=== PATIENT | female | born 1935 | race Caucasian/White ===

== ENCOUNTER 2016-10-11 11:57 | Emergency (ER) | payer MEDICARE, BC ==
[2016-10-11] MEDS ORDERED: Sodium Chloride 0.9% 1,000 ML IV ONE ×2 (12:30→12:32)
[2016-10-11] MEDS ORDERED: Ketorolac 15 MG/ML SDV IVPUSH ONE (12:30)
--- NOTE | 2016-10-11 12:30 | EDM.PDOC ---
ED HPI GENERAL MEDICAL PROBLEM - General Chief Complaint: Neck Problem Stated Complaint: RIGHT ARM PAIN Time Seen by Provider: 10/11/16 11:59 Source of Information: Reports: Patient History Limitations: Reports: No Limitations - History of Present Illness INITIAL COMMENTS - FREE TEXT/NARRATIVE: HISTORY AND PHYSICAL: History of present illness: [80-year-old female with no history of chronic abdominal problems now complaining of right flank and right upper quadrant pain intermittently times weeks. Patient is not vomiting or having diarrhea. She denies fevers chills sweats or shaking chills. She is having the pain again today. Patient is not sure if she had her gallbladder out previously. She does have some discomfort with movement. She states she did fall in recent weeks and is not sure if she hurt her right ribs. No chest pain or shortness of breath. She reports normal bowel and bladder habits Review of systems: As per history of present illness and below otherwise all systems reviewed and negative. Past medical history: As per history of present illness and as reviewed below otherwise noncontributory. Surgical history: As per history of present illness and as reviewed below otherwise noncontributory. Social history: No reported history of drug or alcohol abuse. Family history: As per history of present illness and as reviewed below otherwise noncontributory. Physical exam: Perfectly groomed elderly female no acute distress alert and communicative. Mild right CVA tenderness as well as right upper quadrant tenderness. Mild tenderness right ribs and right lateral costal margin but no ecchymosis or bony crepitus. Patient has normal bowel sounds with no mass or megaly. Nondistended abdomen. HEENT: Atraumatic, normocephalic, pupils reactive, negative for conjunctival pallor or scleral icterus, mucous membranes moist, throat clear, neck supple, nontender, trachea midline. Lungs: Clear to auscultation, breath sounds equal bilaterally, chest nontender. Heart: S1S2, regular, negative for clicks, rubs, or JVD. Abdomen: Soft, nondistended, mild tenderness right upper quadrant. Negative for masses or hepatosplenomegaly. Mild right CVA tenderness Negative for left costovertebral tenderness. Pelvis: Stable nontender. Genitourinary: Deferred. Rectal: Deferred. Extremities: Atraumatic, negative for cords or calf pain. Neurovascular unremarkable. Neuro: Awake, alert, oriented. Cranial nerves II through XII unremarkable. Cerebellum unremarkable. Motor and sensory unremarkable throughout. Exam nonfocal. Diagnostics: CT abdomen and pelvis as well as full labs pending Therapeutics: [Toradol IV fluids administered] Impression: [Abdominal pain] Right rib fractures Hiatal hernia Right pleural effusion Plan: [Elderly female ambulatory and functional perfectly groomed and well-appearing complaining of chronic intermittent right upper quadrant and right flank pain. She also has some right-sided rib tenderness. X-ray right ribs and full abdominal workup pending] X-ray shows 2 right rib fractures fifth and sixth rib. These have started to heal. No pneumothorax. Chest x-ray otherwise unremarkable. Interpreted by me report reviewed CT of the abdomen and pelvis shows small effusion right lung base. Also incidental finding of hiatal hernia. Results otherwise benign. Full laboratory workup is unremarkable including straight catheter urinalysis. No further workup or treatment indicated at this time. Daughter is present with patient and both daughter and patient agree with outpatient follow-up. Strict return precautions given Definitive disposition and diagnosis as appropriate pending reevaluation and review of above. right rib Pain Score (Numeric/FACES): 7 - Related Data Allergies Allergy/AdvReac Type Severity Reaction Status Date / Time contact metal agent Allergy Rash Verified 10/11/16 12:18 latex Allergy Rash Verified 10/11/16 12:18 levofloxacin Allergy Tremors Verified 10/11/16 12:18 Home Meds: Home Meds Acetaminophen [Tylenol Arthritis Pain] 650 mg PO Q4HR PRN 10/11/16 [History] Alum Hydroxide/Mag Hydroxide [Mag-Al Susp] 30 ml PO Q6H PRN 10/11/16 [History] Bisacodyl [Dulcolax] 10 mg RECTAL DAILY PRN 10/11/16 [History] Calcium Carbonate/Vitamin D3 [Calcium 600 + Vit D Tablet] 1 each PO DAILY [History] Diclofenac Sodium 4 gm TP Q6H PRN 10/11/16 [History] Magnesium Hydroxide [Milk of Magnesia] 30 ml PO DAILY PRN 10/11/16 [History] Multivitamin [Daily Kaye] 1 each PO DAILY 10/11/16 [History] Omeprazole 20 mg PO ACBREAKFAST 10/11/16 [History] Sertraline [Zoloft] 100 mg PO DAILY 10/11/16 [History] predniSONE [Prednisone] 5 mg PO DAILY 10/11/16 [History] traMADol [Ultram] 50 mg PO Q4H PRN 10/11/16 [History] Past Medical History HEENT History: Reports: None Cardiovascular History: Reports: None Respiratory History: Reports: None Gastrointestinal History: Reports: Other (See Below) Other Gastrointestinal History: esophageal reflux Genitourinary History: Reports: None 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 Musculoskeletal History: Reports: Arthritis Neurological History: Reports: Other (See Below) Other Neuro History: congenitive deficits, mild Psychiatric History: Reports: Anxiety, Depression Endocrine/Metabolic History: Reports: None Hematologic History: Reports: None Immunologic History: Reports: None Dermatologic History: Reports: None - Infectious Disease History Infectious Disease History: Reports: None - Past Surgical History Head Surgeries/Procedures: Reports: None Social & Family History - Family History Family Medical History: Noncontributory - Tobacco Use Smoking Status *Q: Never Smoker Second Hand Smoke Exposure: No - Caffeine Use Caffeine Use: Reports: None - Alcohol Use Days Per Week of Alcohol Use: 0 - Recreational Drug Use Recreational Drug Use: No ED ROS GENERAL - Review of Systems Review Of Systems: See Below (History of present illness) ED EXAM, GENERAL - Physical Exam Exam: See Below (History of present illness) Course - Vital Signs Last Recorded V/S: Last Vital Signs Temp 36.1 C 10/11/16 12:19 Pulse 70 10/11/16 12:19 Resp 18 10/11/16 12:19 BP 173/87 H 10/11/16 12:19 Pulse Ox 98 10/11/16 12:19 - Orders/Labs/Meds Orders: Active Orders 24 hr Category Date Time Status Abdomen Pelvis w wo Cont [CT] Stat Exams 10/11/16 12:31 Taken Ribs 2V w Chest Rt [CR] Stat Exams 10/11/16 12:40 Taken Peripheral IV Insertion Adult [OM.PC] Stat Oth 10/11/16 12:30 Ordered Labs: Laboratory Tests 10/11/16 10/11/16 10/11/16 Range/Units 12:50 12:50 15:12 WBC 11.03 H (4.0-11.0) K/uL RBC 4.51 (4.30-5.90) M/uL Hgb 13.0 (12.0-16.0) g/dL Hct 39.7 (36.0-46.0) % MCV 88.0 (80.0-98.0) fL MCH 28.8 (27.0-32.0) pg MCHC 32.7 (31.0-37.0) g/dL RDW Std Deviation 44.3 (28.0-62.0) fl RDW Coeff of [place] 14 (11.0-15.0) % Plt Count 220 (150-400) K/uL MPV 9.50 (7.40-12.00) fL Neut % (Auto) 77.3 (48.0-80.0) % Lymph % (Auto) 15.1 L (16.0-40.0) % [place] % (Auto) 6.9 (0.0-15.0) % Eos % (Auto) 0.4 (0.0-7.0) % Baso % (Auto) 0.3 (0.0-1.5) % Neut # (Auto) 8.5 H (1.4-5.7) K/uL Lymph # (Auto) 1.7 (0.6-2.4) K/uL [place] # (Auto) 0.8 (0.0-0.8) K/uL Eos # (Auto) 0.0 (0.0-0.7) K/uL Baso # (Auto) 0.0 (0.0-0.1) K/uL Nucleated RBC % 0.0 /100WBC Nucleated RBCs # 0 K/uL Sodium 141 (136-146) mmol/L Potassium 4.0 (3.5-5.1) mmol/L Chloride 103 (98-110) mmol/L Carbon Dioxide 27 (21-31) mmol/L BUN 12 (6.0-23.0) mg/dL Creatinine 0.8 (0.6-1.5) mg/dL Est Cr Clr Drug Dosing 52.15 mL/min Estimated GFR (MDRD) > 60.0 ml/min Glucose 128 H (60-110) mg/dL Calcium 9.6 (8.8-10.8) mg/dL Total Bilirubin 0.6 (0.1-1.5) mg/dL AST 17 (5-40) IU/L ALT 20 (8-54) IU/L Alkaline Phosphatase 79 (40-150) Total Protein 7.3 (6.0-8.0) g/dL Albumin 4.3 (3.4-4.8) g/dL Globulin 3.0 (2.0-3.5) g/dL Albumin/Globulin Ratio 1.4 (1.3-2.8) Lipase < 8 (7-80) U/L Urine Color YELLOW Urine Appearance CLEAR Urine pH 6.0 (5.0-8.0) Ur Specific [place] 1.010 (1.001-1.035) Urine Protein NEGATIVE (NEGATIVE) mg/dL Urine Glucose (UA) NEGATIVE (NEGATIVE) mg/dL Urine Ketones NEGATIVE (NEGATIVE) mg/dL Urine Occult Blood NEGATIVE (NEGATIVE) Urine Nitrite NEGATIVE (NEGATIVE) Urine Bilirubin NEGATIVE (NEGATIVE) Urine Urobilinogen 0.2 (<2.0) EU/dL Ur Leukocyte Esterase NEGATIVE (NEGATIVE) Urine RBC 0-3 (0-2/HPF) Urine WBC 0-2 (0-5/HPF) Ur Epithelial Cells FEW (NONE-FEW) Urine Bacteria FEW (NEGATIVE) Urine Mucus MODERATE (NONE-MOD) Meds: Medications Discontinued Medications Generic Name Dose Route Start Last Admin Trade Name Freq PRN Reason Stop Dose Admin Sodium Chloride 1,000 mls @ 999 mls/hr 10/11/16 12:30 10/11/16 12:55 Normal Saline IV 10/11/16 13:30 999 mls/hr .Bolus ONE Administration Sodium Chloride 1,000 mls @ 999 mls/hr 10/11/16 12:32 Normal Saline IV 10/11/16 13:32 STAT ONE Iopamidol 100 ml 10/11/16 14:43 10/11/16 14:44 Isovue Multipack-370 (76%) IVPUSH 10/11/16 14:44 100 ml ONETIME STA Administration Ketorolac Tromethamine 15 mg 10/11/16 12:30 10/11/16 12:55 Toradol IVPUSH 10/11/16 12:31 15 mg ONETIME ONE Administration Departure - Departure Time of Disposition: 16:31 Disposition: Home, Self-Care 01 Condition: Good Clinical Impression: Ribs, multiple fractures, Pleural effusion on right, Hiatal hernia - Discharge Information Referrals: Rubens Weeks MD [Primary Care Provider] - Forms: ED Department Discharge Additional Instructions: You have 2 rib fractures on the right your fifth and sixth rib. Use of started to heal since it has been about 2 weeks and she reinjured herself. Is common for them to be sore until they're completely healed. Take Motrin with Tylenol as well if needed for pain. You have a small amount of fluid on the right lung which is called a pleural effusion and follow-up with your Dr. for reevaluation and determine if further workup or treatment is needed. You also have a hiatal hernia which means part of your stomach protrudes up 3 your diaphragm and can sometimes cause some heartburn. Follow up with your DrKat tomorrow and return immediately for new severe or worsening symptoms - My Orders Last 24 Hours: My Active Orders 10/11/16 12:30 Peripheral IV Insertion Adult [OM.PC] Stat 10/11/16 12:31 Abdomen Pelvis w wo Cont [CT] Stat 10/11/16 12:40 Ribs 2V w Chest Rt [CR] Stat - Assessment/Plan Last 24 Hours: My Active Orders 10/11/16 12:30 Peripheral IV Insertion Adult [OM.PC] Stat 10/11/16 12:31 Abdomen Pelvis w wo Cont [CT] Stat 10/11/16 12:40 Ribs 2V w Chest Rt [CR] Stat
[2016-10-11 13:27] LABS: CHLORIDE,CL 103 mmol/L (98-110); SODIUM,NA 141 mmol/L (136-146)
[2016-10-11] MEDS ORDERED: Iopamidol 755 MG/ML 500 ML Multipack Bottle IVPUSH STA (14:43)
--- NOTE | 2016-10-12 13:48 | CR ---
EXAM DATE: 10/11/16 PATIENT'S AGE: 80 Patient: LETY SANCHEZ Facility: [place], [place] Site . Site : 1935 Study: XRay Extremity Right ribs/chest [id number] 2:21:57 PM Ordering Physician: Osvaldo Kendall Final Report: INDICATION: Right chest pain. Recent injury Technique: PA chest and 3 views of right ribs Findings: The heart and mediastinum are normal in size. Pulmonary vessels are normal. The lungs are clear and fully expanded. No pleural fluid. Mild elevation the right hemidiaphragm is not new. No acute right rib fractures. healed fractures of the posterior 5th and 6th ribs. Impression: No acute chest disease or right rib fractures. Old healed fractures of the right 5th and 6th ribs. Dictated by Elier Hoffman MD @ Oct 11 2016 3:10PM (Electronic Signature) Report Signed by Proxy. RICHI
--- NOTE | 2016-10-12 13:49 | CT ---
EXAM DATE: 10/11/16 PATIENT'S AGE: 80 Patient: LETY SANCHEZ Facility: [place], [place] Site . Site : 1935 Study: CT Abdomen/Pelvis W/ and W/O Cont [id number]/[id number]/2017 2:43:43 PM Ordering Physician: Osvaldo Kendall Final Report: INDICATION: Abdominal pain. Technique: Volumetric CT acquisition of the abdomen and pelvis before after administration of 100 mL Isovue-370 intravenous contrast. Multiplanar reconstruction. Comparison: CT abdomen and pelvis on 01/05/2013. Findings: Atelectasis and a small effusion at the right lung base. Liver and spleen are normal in size and without focal abnormality. Liver displays changes of diffuse fatty infiltration. Surgical absence of the gallbladder. No dilatation of the biliary system. Pancreas and adrenal glands are normal. Kidneys normal in size, shape, and position. Both kidneys are functioning. No hydronephrosis. No renal masses or focal parenchymal abnormalities. Ureters normal in course and caliber. The abdominal aorta normal in caliber and displays changes of atherosclerosis. No para-aortic or retrocrural lymphadenopathy. Normal bowel gas pattern. Stable small hiatal hernia. No inflammatory changes involving the bowel. Urinary bladder has a smooth contour. No free fluid in the abdomen or pelvis. No acute bony abnormalities. Lumbar spondylosis. Impression : 1. Atelectasis and a small effusion at the right lung base. 2. Diffuse fatty infiltration of the liver. 3. Gallbladder surgically absent. 4. Stable small hiatal hernia. Please note that all CT scans at this facility use dose modulation, iterative reconstruction, and/or weight-based dosing when appropriate to reduce radiation dose to as low as reasonably achievable. Dictated by Elier Hoffman MD @ Oct 11 2016 3:39PM (Electronic Signature) Report Signed by Proxy. [facility]
[2016-10-12 15:06] VITALS: BP 150/77
== END 2016-10-11 16:56 | disposition home or self-care (01) ==
LOC: MW.ED 11:57
DX: S22.41XA Multiple fractures of ribs, right side, initial encounter for closed fracture (principal); J90 Pleural effusion, not elsewhere classified; K44.9 Diaphragmatic hernia without obstruction or gangrene; W19.XXXA Unspecified fall, initial encounter
CPT/HCPCS: 71101; 74178; 80053; 81001; 83690; 85025; 96361; 96374; 99284; J1885; J7040; Q9967; 99283

== ENCOUNTER 2019-06-26 15:34 | Emergency (ER) | payer MEDICARE, BC ==
[2019-06-26] MEDS ORDERED: fentaNYL 50 MCG/ML SDV IVPUSH ONE (16:05)
--- NOTE | 2019-06-26 16:48 | EDM.PDOC ---
ED HPI GENERAL MEDICAL PROBLEM - General Chief Complaint: Lower Extremity Injury/Pain Stated Complaint: left ankle swollen Time Seen by Provider: 06/26/19 16:45 Source of Information: Reports: Patient, Shelter Records, Old Records History Limitations: Reports: No Limitations, Other - History of Present Illness INITIAL COMMENTS - FREE TEXT/NARRATIVE: Patient is [id number] female with past medical history of dementia presenting status post fall. [facility] Patient does not remember what happened. Per nursing report, the patient was found on the floor conscious but complaining of left ankle pain. Patient states that she injured her left ankle during the fall. Patient reports pain in her left hip as well. Patient denies any numbness or tingling. Patient denies headache or vomiting. Patient denies any chest pain or palpitations. Pmhx: Per HPI Pshx: None Family Hx: noncontributory Smoking history? no Etoh use? none Drug use? none In addition to that documented in the HPI above, the additional ROS was obtained : Constitutional: Denies fevers or chills Eyes: Denies vision changes ENMT: Denies sore throat CV: Denies chest pain Resp: Denies SOB GI: Denies vomiting or diarrhea : Denies painful urination MSK: Per HPI Skin: Denies new rashes Neuro: Denies new numbness or tingling or weakness Endocrine: Denies unexpected weight loss Heme: Denies bleeding disorders I have reviewed the triage vital signs Const: Well nourished, well developed, appears stated age Eyes: PERRL, no conjunctival injection HENT: NCAT, Neck supple without meningismus CV: RRR, Warm, well-perfused extremities RESP: CTAB, Unlabored respiratory effort GI: soft, non-tender, non-distended, no masses MSK: Deformity to the left ankle. No open wounds. Normal bilateral DP pulses. No tenderness to palpation of the left or right greater trochanter. Demonstrates range of motion of the hip. Skin: Warm, dry. 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 Sensation and motor function of extremities grossly intact. Psych: Appropriate mood and affect Assessment and plan: Patient 83-year-old female presenting status post fall. Based on the patient's history and exam seems more likely consistent with mechanical fall given patient advanced age and no prior cardiac history. Patient has normal EKG, normal troponin, normal electrolytes. Patient not complaining of any chest pain or palpitations. Patient observed in the ER without any changes in status. Patient's x-rays and CT did not demonstrate any acute injuries. Patient likely has a sprain of her left ankle. Patient instructions for nonweightbearing and supportive care. All questions was answered. Patient agrees with a plan. LEFT ANKLE Pain Score (Numeric/FACES): 5 - Related Data Allergies Allergy/AdvReac Type Severity Reaction Status Date / Time contact metal agent Allergy Rash Verified 06/26/19 15:52 latex Allergy Rash Verified 06/26/19 15:52 levofloxacin Allergy Tremors Verified 06/26/19 15:52 Home Meds: Home Meds Acetaminophen [Tylenol Arthritis Pain] 650 mg PO Q4HR PRN 10/11/16 [History] Alum Hydroxide/Mag Hydroxide [Mag-Al Susp] 30 ml PO Q6H PRN 10/11/16 [History] Bisacodyl [Dulcolax] 10 mg RECTAL DAILY PRN 10/11/16 [History] Calcium Carbonate/Vitamin D3 [Calcium 600 + Vit D Tablet] 1 each PO DAILY [History] Magnesium Hydroxide [Milk of Magnesia] 30 ml PO DAILY PRN 10/11/16 [History] Multivitamin [Daily Kaye] 1 each PO DAILY 10/11/16 [History] Omeprazole 20 mg PO ACBREAKFAST 10/11/16 [History] Sertraline [Zoloft] 100 mg PO DAILY 10/11/16 [History] predniSONE [Prednisone] 5 mg PO DAILY 10/11/16 [History] Past Medical History HEENT History: Reports: None Cardiovascular History: Reports: None Respiratory History: Reports: None Gastrointestinal History: Reports: GERD, Other (See Below) Other Gastrointestinal History: esophageal reflux Genitourinary History: Reports: None 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 Musculoskeletal History: Reports: Arthritis, Osteoarthritis Neurological History: Reports: TIA, Other (See Below) Other Neuro History: congenitive deficits, mild Psychiatric History: Reports: Anxiety, Depression Endocrine/Metabolic History: Reports: None Hematologic History: Reports: Anemia Immunologic History: Reports: None Oncologic (Cancer) History: Reports: None Dermatologic History: Reports: None - Infectious Disease History Infectious Disease History: Reports: None - Past Surgical History Head Surgeries/Procedures: Reports: None HEENT Surgical History: Reports: None Cardiovascular Surgical History: Reports: None Respiratory Surgical History: Reports: None GI Surgical History: Reports: None Female Surgical History: Reports: None Endocrine Surgical History: Reports: None Neurological Surgical History: Reports: None Musculoskeletal Surgical History: Reports: None Oncologic Surgical History: Reports: None Dermatological Surgical History: Reports: None Social & Family History - Family History Family Medical History: Noncontributory - Tobacco Use Smoking Status *Q: Never Smoker Second Hand Smoke Exposure: No - Caffeine Use Caffeine Use: Reports: None - Recreational Drug Use Recreational Drug Use: No Review of Systems - Review of Systems Review Of Systems: See Below ED EXAM, GENERAL - Physical Exam Exam: See Below Course - Vital Signs Last Recorded V/S: Last Vital Signs Temp 36.5 C 06/26/19 15:46 Pulse 75 06/26/19 15:46 Resp 18 06/26/19 15:46 BP Pulse Ox - Orders/Labs/Meds Orders: Active Orders 24 hr Category Date Time Status EKG Documentation Completion [RC] STAT Care 06/26/19 16:03 Active Labs: Laboratory Tests 06/26/19 06/26/19 Range/Units 16:19 16:19 WBC 7.69 (4.0-11.0) K/uL RBC 4.31 (4.30-5.90) M/uL Hgb 12.4 (12.0-16.0) g/dL Hct 38.9 (36.0-46.0) % MCV 90.3 (80.0-98.0) fL MCH 28.8 (27.0-32.0) pg MCHC 31.9 (31.0-37.0) g/dL RDW Std Deviation 43.5 (28.0-62.0) fl RDW Coeff of [place] 13 (11.0-15.0) % Plt Count 187 (150-400) K/uL MPV 9.40 (7.40-12.00) fL Neut % (Auto) 71.3 (48.0-80.0) % Lymph % (Auto) 21.5 (16.0-40.0) % [place] % (Auto) 6.0 (0.0-15.0) % Eos % (Auto) 0.8 (0.0-7.0) % Baso % (Auto) 0.4 (0.0-1.5) % Neut # (Auto) 5.5 (1.4-5.7) K/uL Lymph # (Auto) 1.7 (0.6-2.4) K/uL [place] # (Auto) 0.5 (0.0-0.8) K/uL Eos # (Auto) 0.1 (0.0-0.7) K/uL Baso # (Auto) 0.0 (0.0-0.1) K/uL Nucleated RBC % 0.0 /100WBC Nucleated RBCs # 0 K/uL Sodium 140 (136-145) mmol/L Potassium 4.2 (3.5-5.1) mmol/L Chloride 103 (98-107) mmol/L Carbon Dioxide 30.0 (21.0-32.0) mmol/L BUN 14 (7.0-18.0) mg/dL Creatinine 0.8 (0.6-1.0) mg/dL Est Cr Clr Drug Dosing 55.64 mL/min Estimated GFR (MDRD) > 60.0 ml/min Glucose 180 H (74-106) mg/dL Calcium 8.8 (8.5-10.1) mg/dL Total Bilirubin 0.4 (0.2-1.0) mg/dL AST 12 L (15-37) IU/L ALT 23 (14-63) IU/L Alkaline Phosphatase 66 (46-116) U/L Troponin I < 0.050 (0.000-0.056) ng/mL Total Protein 6.8 (6.4-8.2) g/dL Albumin 3.6 (3.4-5.0) g/dL Globulin 3.2 (2.6-4.0) g/dL Albumin/Globulin Ratio 1.1 (0.9-1.6) Meds: Medications Discontinued Medications Generic Name Dose Route Start Last Admin Trade Name Ministerioq PRN Reason Stop Dose Admin Fentanyl 50 mcg 06/26/19 16:05 06/26/19 16:27 Fentanyl IVPUSH 06/26/19 16:06 50 mcg ONETIME ONE Administration Departure - Departure Time of Disposition: 18:09 Disposition: Home, Self-Care 01 Clinical Impression: Left ankle sprain, [facility] at [facility] - Discharge Information Instructions: Ankle Sprain Referrals: Rubens Weeks MD [Primary Care Provider] - Forms: ED Department Discharge Additional Instructions: The following information is given to patients seen in the emergency department who are being discharged to home. This information is to outline your options for follow-up care. We provide all patients seen in our emergency department with a follow-up referral. The need for follow-up, as well as the timing and circumstances, are variable depending upon the specifics of your emergency department visit. If you don't have a primary care physician on staff, we will provide you with a referral. We always advise you to contact your personal physician following an emergency department visit to inform them of the circumstance of the visit and for follow-up with them and/or the need for any referrals to a consulting specialist. The emergency department will also refer you to a specialist when appropriate. This referral assures that you have the opportunity for follow-up care with a specialist. All of these measure are taken in an effort to provide you with optimal care, which includes your follow-up. Under all circumstances we always encourage you to contact your private physician who remains a resource for coordinating your care. When calling for follow-up care, please make the office aware that this follow-up is from your recent emergency room visit. If for any reason you are refused follow-up, please contact the [facility] Emergency Department at and asked to speak to the emergency department charge nurse. Sepsis Event Note - Evaluation Sepsis Screening Result: No Definite Risk - Focused Exam Vital Signs: Vital Signs Temp Pulse Resp 06/26/19 15:46 36.5 C 75 18 Date Exam was Performed: 06/26/19 Time Exam was Performed: 18:07 - My Orders Last 24 Hours: My Active Orders 06/26/19 16:03 EKG Documentation Completion [RC] STAT - Assessment/Plan Last 24 Hours: My Active Orders 06/26/19 16:03 EKG Documentation Completion [RC] STAT
[2019-06-26 17:04] LABS: BLOOD UREA NITROGEN,BUN 14 mg/dL (7.0-18.0); CHLORIDE,CL 103 mmol/L (98-107); GLUCOSE RANDOM 180 mg/dL (74-106); POTASSIUM,K 4.2 mmol/L (3.5-5.1); SODIUM,NA 140 mmol/L (136-145)
--- NOTE | 2019-06-26 17:06 | CT ---
CT cervical spine Technique: Multiple axial sections were obtained from above C1 inferiorly to the bottom of T1. Reconstructed sagittal and coronal images were obtained. Comparison: No prior cervical spine imaging. Findings: Degenerative change is noted between the dens and anterior arch of C1. Minimal spondylolisthesis is noted at C4-C5 due to degenerative apophyseal change. Other degenerative apophyseal change is seen throughout the visualized spine. Vertebral body heights and disc spaces are fairly well preserved. No bony central or bony neural foraminal stenosis is seen. No fracture is appreciated. Mild joint space narrowing is noted within the temporomandibular joints. Impression: 1. Degenerative change as described above. 2. Nothing acute is appreciated on CT study of the cervical spine. Diagnostic code #2 Study was dictated in MDT
--- NOTE | 2019-06-26 17:06 | CT ---
Head CT Technique: Multiple axial sections through the brain were obtained. Intravenous contrast was not utilized. Comparison: No previous intracranial imaging is available. Findings: Ventricles along with basal cisterns and sulci over the convexities are moderately prominent. Mild diminished density is noted within portions periventricular white matter compatible with small vessel ischemic demyelination change. Old lacunar infarcts are noted within the basal ganglia. No other abnormal parenchymal densities are seen. No evidence of intracranial hemorrhage. No midline shift or mass effect is seen. No acute calvarial abnormality is appreciated. Visualized mastoid sinuses and paranasal sinuses showed nothing acute. Impression: 1. Senescent change as described above. 2. No acute intracranial abnormality is appreciated. Diagnostic code #2 Study was dictated in MDT
--- NOTE | 2019-06-26 17:51 | CR ---
Left ankle: 3 views left ankle were obtained. Comparison: No previous ankle study. Soft tissue swelling is identified. Ankle mortise is symmetric. Small plantar spur is present. No acute fracture, dislocation or other bony abnormality is appreciated. Impression: 1. Soft tissue swelling. No acute bony abnormality is appreciated. Diagnostic code #1 Study was dictated in MDT
--- NOTE | 2019-06-26 17:57 | CR ---
Pelvis and left hip: AP view of pelvis is obtained as well as AP and frog-leg lateral views left hip. Comparison: No previous study. Bone density is noted off the inferior right iliac wing presumably dystrophic in due to old injury. Joint spaces within both hips are maintained. Sacroiliac joints appear within normal limits. No acute fracture or other abnormality is appreciated. Impression: 1. Bony density off the right iliac wing most likely dystrophic from old injury. 2. Nothing acute is seen on AP pelvis or on 2 view left hip exam. Diagnostic code #2 Study was dictated in MDT
[2019-06-26 18:58] VITALS: BP 119/77; PULSE 88
== END 2019-06-26 18:42 | disposition home or self-care (01) ==
LOC: MW.ED 15:34
DX: S93.402A Sprain of unspecified ligament of left ankle, initial encounter (principal); F03.90 Unspecified dementia, unspecified severity, without behavioral disturbance, psychotic disturbance, mood disturbance, and anxiety; K21.9 Gastro-esophageal reflux disease without esophagitis; M19.90 Unspecified osteoarthritis, unspecified site; F41.9 Anxiety disorder, unspecified; F32.9 Major depressive disorder, single episode, unspecified; Z91.040 Latex allergy status; Z88.1 Allergy status to other antibiotic agents; Z79.899 Other long term (current) drug therapy; Z86.73 Personal history of transient ischemic attack (TIA), and cerebral infarction without residual deficits; W19.XXXA Unspecified fall, initial encounter; Y92.129 Unspecified place in nursing home as the place of occurrence of the external cause
CPT/HCPCS: 70450; 72125; 73502; 73610; 80053; 84484; 85025; 93005; 96374; 99284; J3010

== ENCOUNTER 2019-10-09 17:30 | Inpatient (IN) | payer MEDICARE, BC, OTHER ==
--- NOTE | 2019-10-09 18:12 | EDM.PDOC ---
ED HPI GENERAL MEDICAL PROBLEM - General Chief Complaint: Head Injury Stated Complaint: HEAD INJURY Time Seen by Provider: 10/09/19 17:53 Source of Information: Reports: Patient, Family History Limitations: Reports: No Limitations - History of Present Illness INITIAL COMMENTS - FREE TEXT/NARRATIVE: HISTORY AND PHYSICAL: History of present illness: Patient is an 83-year-old female who presents to the emergency room with complaints of pain post fall. Patient fell from standing height onto her right side. She has a laceration to the left scalp, right sided chest wall pain, g eneralized back pain and left thumb pain. This was witnessed by family, there was no loss of consciousness. Family member states they were walking in from getting groceries when the patient had fallen. Family states there was nothing in front of her that she would have tripped on. Patient herself states she is not sure why she fell. Patient denies any fever, chills, headache, change in vision, syncope or near syncope. Denies any chest pain, shortness of breath or cough. Denies any abdominal pain, nausea, vomiting, diarrhea, constipation or dysuria. Has not noted any blood in urine or stool. Patient has been eating and drinking appropriately. She is not on anticoagulation therapy. Review of systems: As per history of present illness and below otherwise all systems reviewed and negative. Past medical history: As per history of present illness and as reviewed below otherwise noncontributory. Surgical history: As per history of present illness and as reviewed below otherwise no ncontributory. Social history: See social history for further information Family history: As per history of present illness and as reviewed below otherwise noncontributory. Physical exam: General: Well-developed and well-nourished 83-year-old female. Alert but disoriented, this is normal patient variance as she does have dementia. Family members at bedside assisting with answering questions. She is nontoxic- appearing although does have moderate pain due to injuries. Vital signs are stable and have been reviewed by me. HEENT: 1 cm right scalp laceration with tenderness to palpation, normocephalic, pupils equal and reactive bilaterally, negative for conjunctival pallor or scleral icterus, mucous membranes moist, wears dentures, no oral injury is noted. TMs normal bilaterally, throat clear, neck supple, nontender, trachea midline. No drooling or trismus noted. No meningeal signs. No hot potato voice noted. Lungs: Clear to auscultation, breath sounds equal bilaterally, right anterior and lateral chest pain to palpation. Heart: S1S2, regular rate and rhythm without overt murmur Abdomen: Soft, nondistended, nontender. Negative for masses or costovertebral tenderness. Pelvis: Stable nontender. Skin: Right scalp laceration with mild tenderness. Otherwise skin is intact, warm, dry. No lesions or rashes noted. C-spine/Back: Diffuse pain throughout the lumbar region with no pinpoint vertebral tenderness upon palpation. No crepitus, step-offs or obvious deformities. Obvious injury is noted. Patient does stand and ambulate with assistance. She has good flexion and dorsiflexion of bilateral feet. Denies any urinary or fecal incontinence. Denies any numbness, tingling or saddle paresthesia. No concerns of serious infection, fracture or cord compression, or cauda equina syndrome. Deep tendon reflexes brisk bilaterally. Extremities: Pain to left thumb with palpation. Pain to right chest wall pain. She moves all extremities per self without difficulty or deficits, needs assistance. She is negative for cords or calf pain. +CMS to distal extremities bilaterally. Neurovascular unremarkable. Neuro: Awake, alert, oriented. Cranial nerves II through XII unremarkable. Cerebellum unremarkable. Motor and sensory unremarkable throughout. Exam nonfocal. Notes: Upon arrival I did have Dr Torres fully evaluate this patient. He did his own assessment/evaluation of this patient and is agreeable with ordered diagnostics and plan of care. Patient did not get relief with the 2 separate morphine doses. Will give oral [place] as she has had this in the past with good relief. I did thoroughly cleanse the lacerated area to scalp with chlorhexidine and wound wash. #1 staple was used using customary procedures. Patient tolerated well. See radiology note for readings. Half cast fiberglass thumb spica splint was applied to the left upper extremity. Due to patient's pain we will call the hospitalist for admission. Dr. Gomez was consulted, he is agreeable to keeping this patient for inpatient admission. Family does have questions regarding home therapy versus [facility] as they are concerned for her safety within the home she is currently living. I did encourage them to talk tomorrow tried her who will be able to direct them further. Radiology Readings: Portable chest x-ray shows no acute findings. Thumb x-ray: Corner fracture involving the base of the proximal phalanx of the left thumb. Articular extension is noted with mild displacement. Osteopenia and degenerative changes are noted. Thumb spica splint applied to left upper extremity until follow up with orthopedics. Pelvis x-ray shows osteopenia and degenerative changes, no acute findings are noted. C-spine: Mild degenerative disc disease of the cervical spine without evidence of cervical spine fracture. Head:Right parietal scalp hematoma without fracture or intracranial bleeding. Cerebral atrophy with nonspecific white matter disease likely microangiopathy.Thoracic spine: Mild degenerative disc disease without evidence of acute thoracic spine fracture.Chest CT: Multiple old fractures with C-spine/Back: No pinpoint vertebral tenderness upon palpation. No crepitus, step-offs or obvious deformities. Patient is ambulatory into the emergency room without difficulty or deficit. Able to rock back on heels and walk on toes. Denies any urinary or fecal incontinence. Denies any numbness, tingling or saddle paresthesia. No concerns of serious infection, fracture or cord compression, or cauda equina syndrome. Deep tendon reflexes brisk bilaterally. Right fourth, sixth, seventh, eighth rib. No pneumothorax. No acute pulmonary consolidation. Abd/Pelvis: No evidence of acute traumatic injury of the pelvis/abdomen. Fatty infiltration of the liver. Small hiatal hernia. Diagnostics: CBC, CMP, Troponin, EKG, CXR, Pelvis, CT head/cspine/thoracic/lumbar spine, CT chest/abd/pelvis COVID-19 Therapeutics: SL, Morphine, Thumb spica splint Impression: Unexplained fall Head injury Laceration Back pain Phalanx fracture, left thumb Multiple rib fractures History of dementia Plan: Inpatient admission to Med/Surg with Telemetry Definitive disposition and diagnosis as appropriate pending reevaluation and review of above. right back Pain Score (Numeric/FACES): 10 - Related Data Allergies Allergy/AdvReac Type Severity Reaction Status Date / Time contact metal agent Allergy Rash Verified 10/09/19 17:56 latex Allergy Rash Verified 10/09/19 17:56 levofloxacin Allergy Tremors Verified 10/09/19 17:56 Home Meds: Home Meds Acetaminophen [Tylenol Arthritis Pain] 650 mg PO Q4HR PRN 10/11/16 [History] Calcium Carbonate/Vitamin D3 [Calcium 600 + Vit D Tablet] 1 each PO DAILY 10/11/16 [History] Multivitamin [Daily [place]] 1 each PO DAILY 10/11/16 [History] Omeprazole 20 mg PO ACBREAKFAST 10/11/16 [History] Sertraline [Zoloft] 100 mg PO DAILY 10/11/16 [History] sitaGLIPtin Phosphate [Januvia] 50 mg PO DAILY 10/09/19 [History] Past Medical History HEENT History: Reports: None Cardiovascular History: Reports: None Respiratory History: Reports: None Gastrointestinal History: Reports: GERD, Other (See Below) Other Gastrointestinal History: esophageal reflux Genitourinary History: Reports: None 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 Musculoskeletal History: Reports: Arthritis, Osteoarthritis Neurological History: Reports: TIA, Other (See Below) Other Neuro History: congenitive deficits, mild Psychiatric History: Reports: Anxiety, Depression Endocrine/Metabolic History: Reports: None Hematologic History: Reports: Anemia Immunologic History: Reports: None Oncologic (Cancer) History: Reports: None Dermatologic History: Reports: None - Infectious Disease History Infectious Disease History: Reports: Chicken Pox, Measles, Mumps - Past Surgical History Head Surgeries/Procedures: Reports: None HEENT Surgical History: Reports: None Cardiovascular Surgical History: Reports: None Respiratory Surgical History: Reports: None GI Surgical History: Reports: None Female Surgical History: Reports: None Endocrine Surgical History: Reports: None Neurological Surgical History: Reports: None Musculoskeletal Surgical History: Reports: None Oncologic Surgical History: Reports: None Dermatological Surgical History: Reports: None Social & Family History - Family History Family Medical History: Noncontributory - Tobacco Use Smoking Status *Q: Never Smoker - Caffeine Use Caffeine Use: Reports: None ED ROS GENERAL - Review of Systems Review Of Systems: Comprehensive ROS is negative, except as noted in HPI. ED EXAM, HEAD INJURY - Physical Exam Exam: See Below (See dictation) ED LACERATION/WOUND & LILY PROC - Laceration/Wound Repair Right scalp Lac/wound length in cm: 1 Appearance: Subcutaneous, Linear Distal NVT: Neuro & Vascular Intact Skin Prep: Chlorhexidine (Hibiciens), Saline, Sterile Drape Saline irrigation (cc's): 250 Exploration/Debridement/Repair: Wound Explored, In a Bloodless Field, Explored to Base, No Foreign Material Found Closed with: [place] # of Sutures: 1 Drain Placement: No Sterile Dressing Applied: Provider Tetanus Status Addressed: Yes Complications: No Course - Vital Signs Last Recorded V/S: Last Vital Signs Temp 96.9 F 10/09/19 17:52 Pulse 86 10/09/19 19:30 Resp 18 10/09/19 19:30 BP 150/79 H 10/09/19 19:30 Pulse Ox 96 10/09/19 19:30 - Orders/Labs/Meds Orders: Active Orders 24 hr Category Date Time Status Admission Status [Patient Status] [ADT] Stat ADT 10/09/19 21:06 Active Cardiac Monitoring [RC] . DIRECTED Care 10/09/19 21:14 Ordered EKG Documentation Completion [RC] STAT Care 10/09/19 18:05 Active Abdomen Pelvis w Cont [CT] Stat Exams 10/09/19 18:15 Stop Req Chest w Cont [CT] Stat Exams 10/09/19 18:15 Stop Req Chest wo Cont [CT] Stat Exams 10/09/19 18:04 Stop Req CORONAVIRUS COVID-19 PCR PHL Stat Lab 10/09/19 21:14 Ordered UA RFX STEPHANIE AND CULT IF INDIC [URIN] Stat Lab 10/09/19 18:05 Ordered DME for Discharge [COMM] Stat Oth 10/09/19 20:45 Ordered Labs: Laboratory Tests 10/09/19 10/09/19 10/09/19 Range/Units 18:20 18:20 18:20 WBC 9.29 (4.0-11.0) K/uL RBC 4.41 (4.30-5.90) M/uL Hgb 12.7 (12.0-16.0) g/dL Hct 39.4 (36.0-46.0) % MCV 89.3 (80.0-98.0) fL MCH 28.8 (27.0-32.0) pg MCHC 32.2 (31.0-37.0) g/dL RDW Std Deviation 43.7 (28.0-62.0) fl RDW Coeff of [place] 13 (11.0-15.0) % Plt Count 222 (150-400) K/uL MPV 9.80 (7.40-12.00) fL Neut % (Auto) 70.0 (48.0-80.0) % Lymph % (Auto) 22.5 (16.0-40.0) % [place] % (Auto) 6.5 (0.0-15.0) % Eos % (Auto) 0.8 (0.0-7.0) % Baso % (Auto) 0.2 (0.0-1.5) % Neut # (Auto) 6.5 H (1.4-5.7) K/uL Lymph # (Auto) 2.1 (0.6-2.4) K/uL [place] # (Auto) 0.6 (0.0-0.8) K/uL Eos # (Auto) 0.1 (0.0-0.7) K/uL Baso # (Auto) 0.0 (0.0-0.1) K/uL Nucleated RBC % 0.0 /100WBC Nucleated RBCs # 0 K/uL INR 0.98 Sodium 138 (136-145) mmol/L Potassium 3.7 (3.5-5.1) mmol/L Chloride 102 (98-107) mmol/L Carbon Dioxide 22.8 (21.0-32.0) mmol/L BUN 21 H (7.0-18.0) mg/dL Creatinine 1.0 (0.6-1.0) mg/dL Est Cr Clr Drug Dosing 44.51 mL/min Estimated GFR (MDRD) 53.2 ml/min Glucose 165 H (74-106) mg/dL Calcium 8.8 (8.5-10.1) mg/dL Total Bilirubin 0.6 (0.2-1.0) mg/dL AST 35 (15-37) IU/L ALT 38 (14-63) IU/L Alkaline Phosphatase 70 (46-116) U/L Troponin I < 0.050 (0.000-0.056) ng/mL Total Protein 7.6 (6.4-8.2) g/dL Albumin 4.1 (3.4-5.0) g/dL Globulin 3.5 (2.6-4.0) g/dL Albumin/Globulin Ratio 1.2 (0.9-1.6) Meds: Medications Discontinued Medications Generic Name Dose Route Start Last Admin Trade Name Freq PRN Reason Stop Dose Admin Hydrocodone Bitart/Acetaminophen 1 tab 10/09/19 20:27 10/09/19 20:51 [place] 325-5 Mg PO 10/09/19 20:28 1 tab ONETIME ONE Administration Morphine Sulfate 2 mg 10/09/19 18:29 10/09/19 18:42 Morphine IVPUSH 10/09/19 18:30 2 mg ONETIME ONE Administration Morphine Sulfate 2 mg 10/09/19 19:43 10/09/19 19:49 Morphine IVPUSH 10/09/19 19:44 2 mg ONETIME ONE Administration Departure - Departure Time of Disposition: 21:12 Disposition: Admitted As Inpatient 68 Clinical Impression: Unexplained falls, Pain management, Laceration, History of dementia Multiple rib fractures Qualifiers: Encounter type: initial encounter Fracture type: closed Laterality: right Qualified Code(s): S22.41XA - Multiple fractures of ribs, right side, initial encounter for closed fracture Back pain Qualifiers: Back pain location: back pain in unspecified location Chronicity: acute Back pain laterality: bilateral Qualified Code(s): M54.9 - Dorsalgia, unspecified Fracture of phalanx of thumb Qualifiers: Encounter type: initial encounter Fracture type: closed Phalanx: proximal Fracture alignment: displaced Laterality: left Qualified Code(s): S62.512A - Displaced fracture of proximal phalanx of left thumb, initial encounter for closed fracture Head injury Qualifiers: Encounter type: initial encounter Qualified Code(s): S09.90XA - Unspecified injury of head, initial encounter - Discharge Information Referrals: Rubens Weeks MD [Primary Care Provider] - Forms: ED Department Discharge Sepsis Event Note (ED) - Evaluation Sepsis Screening Result: No Definite Risk - Focused Exam Vital Signs: Vital Signs Temp Pulse Resp BP Pulse Ox 10/09/19 19:30 86 18 150/79 H 96 10/09/19 17:52 96.9 F 94 16 159/89 H 94 L - My Orders Last 24 Hours: My Active Orders 10/09/19 18:04 Chest wo Cont [CT] Stat 10/09/19 18:05 EKG Documentation Completion [RC] STAT UA RFX STEPHANIE AND CULT IF INDIC [URIN] Stat 10/09/19 18:15 Abdomen Pelvis w Cont [CT] Stat Chest w Cont [CT] Stat 10/09/19 20:45 DME for Discharge [COMM] Stat 10/09/19 21:06 Admission Status [Patient Status] [ADT] Stat 10/09/19 21:14 Cardiac Monitoring [RC] . DIRECTED CORONAVIRUS COVID-19 PCR PHL Stat - Assessment/Plan Last 24 Hours: My Active Orders 10/09/19 18:04 Chest wo Cont [CT] Stat 10/09/19 18:05 EKG Documentation Completion [RC] STAT UA RFX STEPHANIE AND CULT IF INDIC [URIN] Stat 10/09/19 18:15 Abdomen Pelvis w Cont [CT] Stat Chest w Cont [CT] Stat 10/09/19 20:45 DME for Discharge [COMM] Stat 10/09/19 21:06 Admission Status [Patient Status] [ADT] Stat 10/09/19 21:14 Cardiac Monitoring [RC] . DIRECTED CORONAVIRUS COVID-19 PCR PHL Stat
[2019-10-09] MEDS ORDERED: Morphine 2 MG/ML SYRINGE IVPUSH ONE ×2 (18:29→19:43)
--- NOTE | 2019-10-09 18:42 | CR ---
Left thumb: 3 views left thumb were obtained. Fracture is identified off the corner base of the proximal phalanx of the thumb. Articular extension is seen with mild displacement. Bony structures are osteopenic. No additional fracture is seen. Degenerative change is noted within the CMC joint. Impression: 1. Corner fracture involving the base of the proximal phalanx of the left thumb. Articular extension is noted with mild displacement. 2. Osteopenia and degenerative change. Diagnostic code #3 This report was dictated in MDT
--- NOTE | 2019-10-09 18:44 | CR ---
Chest: Supine portable view of the chest was obtained. Comparison: Prior chest study obtained during rib exam of 10/11/16. Heart size is within normal limits for portable technique. Tortuous thoracic aorta is seen. Lungs are clear with no acute parenchymal change. Bony structures are osteopenic. No definite acute bony abnormality is seen on this portable chest x-ray. Impression: 1. Nothing acute is seen on supine portable chest x-ray. Diagnostic code #2 This report was dictated in MDT
--- NOTE | 2019-10-09 18:44 | CR ---
Pelvis: AP view of the pelvis was obtained. Comparison: No previous study. Joint spaces within both hips are maintained. Sacroiliac joints are within normal limits. Degenerative change is noted within the visualized lower lumbar spine. Nothing acute is definitely appreciated. Impression: 1. Osteopenia and degenerative change. 2. Nothing acute is appreciated. Diagnostic code #2 This report was dictated in MDT
[2019-10-09 19:01] LABS: BLOOD UREA NITROGEN,BUN 21 mg/dL (7.0-18.0); CARBON DIOXIDE,CO2 22.8 mmol/L (21.0-32.0); CHLORIDE,CL 102 mmol/L (98-107); GLUCOSE RANDOM 165 mg/dL (74-106); POTASSIUM,K 3.7 mmol/L (3.5-5.1); SODIUM,NA 138 mmol/L (136-145)
[2019-10-09] MEDS ORDERED: Acetaminophen/HYDROcodone 325-5 MG Tab PO ONE (20:27)
--- NOTE | 2019-10-09 20:30 | CT ---
INDICATION: Status post fall TECHNIQUE: CT head without contrast. COMPARISON: None. FINDINGS: CSF spaces: Cavum septum pellucidum and cavum septum vergae. Brain parenchyma: Cerebral atrophy with mild low-density deep white matter without appreciable mass effect. No intracranial bleed. Skull base and calvarium: Trace mucosal thickening paranasal sinuses. The visualized orbits are grossly unremarkable. No skull fractures. Right parietal scalp hematoma. Atherosclerosis. IMPRESSION: 1. Right parietal scalp hematoma without calvarial fracture or intracranial bleed. 2. Cerebral atrophy with nonspecific white matter disease, likely microangiopathy. Please note that all CT scans at this facility use dose modulation, iterative reconstruction, and/or weight-based dosing when appropriate to reduce radiation dose to as low as reasonably achievable. Dictated by Darin Mon MD @ Oct 09 2019 8:17PM Signed by Dr. Darin Mon @ Oct 09 2019 8:29PM
--- NOTE | 2019-10-09 20:34 | CT ---
INDICATION: Status post fall TECHNIQUE: CT cervical spine without contrast. COMPARISON: None FINDINGS: Vertebrae: Alignment is normal. There are no fractures or suspicious bony lesions. Discs and facet joints: Marginal osteophytes at the atlantoaxial joint, mostly on the right. Facet hypertrophy with posterior osteophytes at C4-5 causing mild left foraminal stenosis. Facet hypertrophy without significant stenosis C5-6, C6-7 and C7-T1. Extraspinal findings: [place] in the nuchal ligament. IMPRESSION: Mild degenerative disc disease cervical spine without evidence of cervical spine fracture. Please note that all CT scans at this facility use dose modulation, iterative reconstruction, and/or weight-based dosing when appropriate to reduce radiation dose to as low as reasonably achievable. Dictated by Darin Mon MD @ Oct 09 2019 8:17PM Signed by Dr. Darin Mon @ Oct 09 2019 8:33PM
--- NOTE | 2019-10-09 20:46 | CT ---
INDICATION: Fall TECHNIQUE: Axial images were obtained from the thoracic inlet to the diaphragm. Reformats: Coronal and sagittal IV Contrast: None COMPARISON: None. FINDINGS: Mediastinum: No enlarged mediastinal lymph nodes. Thoracic aorta normal in caliber. No pericardial effusion. Mild atherosclerotic calcification. Lungs and Pleural Space: No pneumothorax or pleural effusion. No acute consolidation. Chest wall: No masses. Bones: Mild right glenohumeral osteoarthritis. Old right 2nd rib fracture. Old right 4th through 6th rib fractures with an acute right 6th rib fracture laterally with 2 millimeters displacement. Likely nondisplaced right 4th rib fracture posteriorly (2, 16). Acute right 7th rib fracture laterally with 2 millimeters displacement. Nondisplaced right 8th rib fracture laterally. IMPRESSION: 1. Multiple old fractures with acute right 4th, 6th, 7th and 8th rib fractures. No pneumothorax. 2. No acute pulmonary consolidation. Please note that all CT scans at this facility use dose modulation, iterative reconstruction, and/or weight-based dosing when appropriate to reduce radiation dose to as low as reasonably achievable. Dictated by Darin Mon MD @ Oct 09 2019 8:33PM Signed by Dr. Darin Mon @ Oct 09 2019 8:45PM
--- NOTE | 2019-10-09 20:51 | CT ---
INDICATION: Fall TECHNIQUE: CT thoracic spine without contrast. COMPARISON: None FINDINGS: Vertebral alignment: Alignment is normal. Vertebrae: There are no fractures or suspicious bony lesions. Discs and facet joints: Small thoracic osteophytes without significant bony central spinal canal stenosis. IMPRESSION: Mild degenerative disc disease thoracic spine without evidence of acute thoracic spine fracture. Please note that all CT scans at this facility use dose modulation, iterative reconstruction, and/or weight-based dosing when appropriate to reduce radiation dose to as low as reasonably achievable. Dictated by Darin Mon MD @ Oct 09 2019 8:17PM Signed by Dr. Darin Mon @ Oct 09 2019 8:49PM
--- NOTE | 2019-10-09 20:55 | CT ---
INDICATION: Fall TECHNIQUE: Axial images were obtained from the diaphragm to the pubic symphysis. Reformats were obtained in the coronal and sagittal plane. IV Contrast: None Oral Contrast: None COMPARISON: None. FINDINGS: Liver: Diffusely decreased density liver with additional focal fat adjacent to the portal vein. Calcification within the liver consistent with old granulomatous disease. Gallbladder and bile ducts: Status post cholecystectomy. Spleen: Unremarkable. Normal in size without mass. Pancreas: Unremarkable. No mass or inflammation. Adrenal glands: Unremarkable. No nodules. Kidneys: Unremarkable. No masses, stones, or hydronephrosis. Vasculature: Atherosclerosis without abdominal aortic aneurysm. GI tract: Small hiatal hernia. No dilated loops of large or small intestine. Colonic diverticulosis. Pelvis: Bladder is unremarkable. Status posthysterectomy. No adnexal mass. Bones: Mild degenerative disc disease lumbar spine. IMPRESSION: 1. No evidence of acute traumatic injury to the abdomen and pelvis. 2. Fatty infiltration of the liver. 3. Small hiatal hernia. Please note that all CT scans at this facility use dose modulation, iterative reconstruction, and/or weight-based dosing when appropriate to reduce radiation dose to as low as reasonably achievable. Dictated by Darin Mon MD @ Oct 09 2019 8:17PM Signed by Dr. Darin Mon @ Oct 09 2019 8:54PM
--- NOTE | 2019-10-09 20:59 | CT ---
INDICATION: Fall TECHNIQUE: CT lumbar spine without contrast. COMPARISON: None FINDINGS: Vertebrae: There are no fractures or suspicious bony lesions. Discs and facet joints: Broad-based annular bulges with eccentric left osteophytes cause mild left foraminal stenosis at L2-3 and L3-4. Minimal broad-based annular bulge L4-5 without significant stenosis. Small broad-based annular bulge with posterior osteophytes at L5-S1 causing mild bilateral foraminal stenosis. IMPRESSION: Mild degenerative disc disease lumbar spine without evidence of lumbar spine fracture. Please note that all CT scans at this facility use dose modulation, iterative reconstruction, and/or weight-based dosing when appropriate to reduce radiation dose to as low as reasonably achievable. Dictated by Darin Mon MD @ Oct 09 2019 8:16PM Signed by Dr. Darin Mon @ Oct 09 2019 8:57PM
[2019-10-09] MEDS: Lactated Ringers 1,000 ML IV SCH (22:58)
--- NOTE | 2019-10-09 23:41 | PCM.HP.2 ---
H&P History of Present Illness - General Date of Service: 10/10/19 Admit Problem/Dx: Admission Diagnosis/Problem Admission Diagnosis/Problem Pain management - History of Present Illness Initial Comments - Free Text/Narative: 83 yo female with pmh of DM and dementia who lives with her daughter. PAtient fell in the garage. Daughter was carrying in groceries when she heard her shout. She was found on her back. In the ED she was discovered to have a 1cm scalp laceration on the right. She also had a bruised right elbow. On radiological images she had a fracture of her left thumb and fractures of the 4th, 6th 7th, 8th right ribs. right back Pain Score (Numeric/FACES): 10 - Related Data Allergies/Adverse Reactions: Allergies Allergy/AdvReac Type Severity Reaction Status Date / Time contact metal agent Allergy Rash Verified 10/09/19 17:56 latex Allergy Rash Verified 10/09/19 17:56 levofloxacin Allergy Tremors Verified 10/09/19 17:56 Home Medications: Home Meds Acetaminophen [Tylenol Arthritis Pain] 650 mg PO Q4HR PRN 10/11/16 [History] Calcium Carbonate/Vitamin D3 [Calcium 600 + Vit D Tablet] 1 each PO DAILY 10/11/16 [History] Multivitamin [Daily Kaye] 1 each PO DAILY 10/11/16 [History] Omeprazole 20 mg PO ACBREAKFAST 10/11/16 [History] Sertraline [Zoloft] 100 mg PO DAILY 10/11/16 [History] sitaGLIPtin Phosphate [Januvia] 50 mg PO DAILY 10/09/19 [History] Past Medical History HEENT History: Reports: None Cardiovascular History: Reports: None Respiratory History: Reports: None Gastrointestinal History: Reports: GERD, Other (See Below) Other Gastrointestinal History: esophageal reflux Genitourinary History: Reports: None 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 Musculoskeletal History: Reports: Arthritis, Osteoarthritis Neurological History: Reports: TIA, Other (See Below) Other Neuro History: congenitive deficits, mild Psychiatric History: Reports: Anxiety, Depression Endocrine/Metabolic History: Reports: None Hematologic History: Reports: Anemia Immunologic History: Reports: None Oncologic (Cancer) History: Reports: None Dermatologic History: Reports: None - Infectious Disease History Infectious Disease History: Reports: Chicken Pox, Measles, Mumps - Past Surgical History Head Surgeries/Procedures: Reports: None HEENT Surgical History: Reports: None Cardiovascular Surgical History: Reports: None Respiratory Surgical History: Reports: None GI Surgical History: Reports: None Female Surgical History: Reports: None Endocrine Surgical History: Reports: None Neurological Surgical History: Reports: None Musculoskeletal Surgical History: Reports: None Oncologic Surgical History: Reports: None Dermatological Surgical History: Reports: None Social & Family History - Family History Family Medical History: Noncontributory - Tobacco Use Smoking Status *Q: Never Smoker - Caffeine Use Caffeine Use: Reports: None H&P Review of Systems - Review of Systems: Review Of Systems: Unable To Obtain Reason Not Obtained: dementia Exam - Exam Exam: See Below - Vital Signs Vital Signs: Last Vital Signs Temp 36 C L 10/09/19 21:30 Pulse 84 10/09/19 21:30 Resp 18 10/09/19 21:30 BP 146/55 H 10/09/19 21:30 Pulse Ox 95 10/09/19 21:30 Weight: 92.986 kg - Exam General: Cooperative. No: Severe Distress Neck: Supple Lungs: Clear to Auscultation, Normal Respiratory Effort Cardiovascular: Regular Rate, Regular Rhythm GI/Abdominal Exam: Normal Bowel Sounds, Soft, Non-Tender Extremities: Non-Tender, No Pedal Edema Skin: Warm, Dry, Intact - Patient Data Lab Results Last 24 hrs: Laboratory Results - last 24 hr 10/09/19 10/09/19 10/09/19 Range/Units 18:20 18:20 18:20 WBC 9.29 (4.0-11.0) K/uL RBC 4.41 (4.30-5.90) M/uL Hgb 12.7 (12.0-16.0) g/dL Hct 39.4 (36.0-46.0) % MCV 89.3 (80.0-98.0) fL MCH 28.8 (27.0-32.0) pg MCHC 32.2 (31.0-37.0) g/dL RDW Std Deviation 43.7 (28.0-62.0) fl RDW Coeff of [place] 13 (11.0-15.0) % Plt Count 222 (150-400) K/uL MPV 9.80 (7.40-12.00) fL Neut % (Auto) 70.0 (48.0-80.0) % Lymph % (Auto) 22.5 (16.0-40.0) % [place] % (Auto) 6.5 (0.0-15.0) % Eos % (Auto) 0.8 (0.0-7.0) % Baso % (Auto) 0.2 (0.0-1.5) % Neut # (Auto) 6.5 H (1.4-5.7) K/uL Lymph # (Auto) 2.1 (0.6-2.4) K/uL [place] # (Auto) 0.6 (0.0-0.8) K/uL Eos # (Auto) 0.1 (0.0-0.7) K/uL Baso # (Auto) 0.0 (0.0-0.1) K/uL Nucleated RBC % 0.0 /100WBC Nucleated RBCs # 0 K/uL INR 0.98 Sodium 138 (136-145) mmol/L Potassium 3.7 (3.5-5.1) mmol/L Chloride 102 (98-107) mmol/L Carbon Dioxide 22.8 (21.0-32.0) mmol/L BUN 21 H (7.0-18.0) mg/dL Creatinine 1.0 (0.6-1.0) mg/dL Est Cr Clr Drug Dosing 44.51 mL/min Estimated GFR (MDRD) 53.2 ml/min Glucose 165 H (74-106) mg/dL Calcium 8.8 (8.5-10.1) mg/dL Total Bilirubin 0.6 (0.2-1.0) mg/dL AST 35 (15-37) IU/L ALT 38 (14-63) IU/L Alkaline Phosphatase 70 (46-116) U/L Troponin I < 0.050 (0.000-0.056) ng/mL Total Protein 7.6 (6.4-8.2) g/dL Albumin 4.1 (3.4-5.0) g/dL Globulin 3.5 (2.6-4.0) g/dL Albumin/Globulin Ratio 1.2 (0.9-1.6) COVID-19 ([facility]) (NEGATIVE) 10/09/19 Range/Units 21:20 WBC (4.0-11.0) K/uL RBC (4.30-5.90) M/uL Hgb (12.0-16.0) g/dL Hct (36.0-46.0) % MCV (80.0-98.0) fL MCH (27.0-32.0) pg MCHC (31.0-37.0) g/dL RDW Std Deviation (28.0-62.0) fl RDW Coeff of [place] (11.0-15.0) % Plt Count (150-400) K/uL MPV (7.40-12.00) fL Neut % (Auto) (48.0-80.0) % Lymph % (Auto) (16.0-40.0) % [place] % (Auto) (0.0-15.0) % Eos % (Auto) (0.0-7.0) % Baso % (Auto) (0.0-1.5) % Neut # (Auto) (1.4-5.7) K/uL Lymph # (Auto) (0.6-2.4) K/uL [place] # (Auto) (0.0-0.8) K/uL Eos # (Auto) (0.0-0.7) K/uL Baso # (Auto) (0.0-0.1) K/uL Nucleated RBC % /100WBC Nucleated RBCs # K/uL INR Sodium (136-145) mmol/L Potassium (3.5-5.1) mmol/L Chloride (98-107) mmol/L Carbon Dioxide (21.0-32.0) mmol/L BUN (7.0-18.0) mg/dL Creatinine (0.6-1.0) mg/dL Est Cr Clr Drug Dosing mL/min Estimated GFR (MDRD) ml/min Glucose (74-106) mg/dL Calcium (8.5-10.1) mg/dL Total Bilirubin (0.2-1.0) mg/dL AST (15-37) IU/L ALT (14-63) IU/L Alkaline Phosphatase (46-116) U/L Troponin I (0.000-0.056) ng/mL Total Protein (6.4-8.2) g/dL Albumin (3.4-5.0) g/dL Globulin (2.6-4.0) g/dL Albumin/Globulin Ratio (0.9-1.6) COVID-19 ([facility]) NEGATIVE (NEGATIVE) Result Diagrams: 10/10/19 05:12 10/10/19 05:12 Sepsis Event Note - Evaluation Sepsis Screening Result: No Definite Risk - Focused Exam Vital Signs: Vital Signs Temp Pulse Resp BP Pulse Ox 10/09/19 21:30 36 C L 84 18 146/55 H 95 10/09/19 19:30 86 18 150/79 H 96 10/09/19 17:52 36.1 C 94 16 159/89 H 94 L Date Exam was Performed: 10/11/19 Time Exam was Performed: 23:10 Problem List Initiated/Reviewed/Updated: Yes Orders Last 24hrs: Active Orders 24 hr Category Date Time Status Admission Status [Patient Status] [ADT] Stat ADT 10/09/19 21:06 Active Cardiac Monitoring [RC] . DIRECTED Care 10/09/19 21:14 Active EKG Documentation Completion [RC] STAT Care 10/09/19 18:05 Active UA RFX STEPHANIE AND CULT IF INDIC [URIN] Stat Lab 10/09/19 18:05 Ordered Lactated Ringers [Ringers, Lactated] 1,000 ml Med 10/09/19 21:45 Active IV ASDIRECTED DME for Discharge [COMM] Stat Oth 10/09/19 20:45 Ordered Medication Orders Lactated Ringer's (Ringers, Lactated) 1,000 mls @ 100 mls/hr IV ASDIRECTED [facility]CO Last Admin: 10/09/19 22:58 Dose: 100 mls/hr Documented by: JOHN Assessment/Plan Comment:: 83 yo female with multiple rib fractures following fall. We will admit for pain control.
[2019-10-10] MEDS: Lactated Ringers 1,000 ML IV SCH (00:15)
[2019-10-10] MEDS: Morphine 2 MG/ML SYRINGE IVPUSH PRN ×3 (03:11→21:29)
[2019-10-10 06:20] LABS: BLOOD UREA NITROGEN,BUN 19 mg/dL (7.0-18.0); CARBON DIOXIDE,CO2 24.9 mmol/L (21.0-32.0); CHLORIDE,CL 103 mmol/L (98-107); GLUCOSE RANDOM 151 mg/dL (74-106); POTASSIUM,K 3.8 mmol/L (3.5-5.1); SODIUM,NA 138 mmol/L (136-145)
[2019-10-10] MEDS: Insulin Aspart 100 Units/ML 3 ML Pen SUBCUT SCH ×3 (07:26→17:41)
[2019-10-10] MEDS: oxyCODONE 5 MG Tab PO PRN ×2 (07:41→12:00)
[2019-10-10] MEDS: Omeprazole 20 MG Cap.CR PO SCH (07:41)
[2019-10-10] MEDS: Sertraline 100 MG Tab PO SCH (09:20)
[2019-10-10] MEDS: Acetaminophen 325 MG Tab PO PRN ×3 (10:16→21:28)
--- NOTE | 2019-10-10 10:58 | PCM.PN ---
- General Info Date of Service: 10/10/19 Admission Dx/Problem (Free Text): Admission Diagnosis/Problem Admission Diagnosis/Problem Pain management Subjective Update: Having pain on her R side. No chest pain. Pain to L thumb. Daughter at bedside, no concerns. Reports R elbow pain will obtain xray Functional Status: Reports: Pain Controlled, Tolerating Diet, Urinating. Denies: Ambulating - Review of Systems HEENT: Reports: No Symptoms Pulmonary: Reports: No Symptoms Cardiovascular: Reports: No Symptoms. Denies: Chest Pain Gastrointestinal: Denies: Abdominal Pain, Nausea Musculoskeletal: Reports: Joint Pain (L thumb pain), Other (R flank Ribcage pain) Skin: Reports: No Symptoms Neurological: Reports: No Symptoms Psychiatric: Reports: No Symptoms - Patient Data Vitals - Most Recent: Last Vital Signs Temp 97.8 F 10/10/19 07:24 Pulse 81 10/10/19 07:24 Resp 16 10/10/19 04:15 BP 145/72 H 10/10/19 07:24 Pulse Ox 91 L 10/10/19 07:24 Weight - Most Recent: 92.986 kg I&O - Last 24 Hours: Intake & Output 10/09/19 10/10/19 10/10/19 22:59 06:59 14:59 Intake Total 250 Output Total 400 Balance -150 Lab Results Last 24 Hours: Laboratory Results - last 24 hr 10/09/19 10/09/19 10/09/19 Range/Units 18:20 18:20 18:20 WBC 9.29 (4.0-11.0) K/uL RBC 4.41 (4.30-5.90) M/uL Hgb 12.7 (12.0-16.0) g/dL Hct 39.4 (36.0-46.0) % MCV 89.3 (80.0-98.0) fL MCH 28.8 (27.0-32.0) pg MCHC 32.2 (31.0-37.0) g/dL RDW Std Deviation 43.7 (28.0-62.0) fl RDW Coeff of [place] 13 (11.0-15.0) % Plt Count 222 (150-400) K/uL MPV 9.80 (7.40-12.00) fL Neut % (Auto) 70.0 (48.0-80.0) % Lymph % (Auto) 22.5 (16.0-40.0) % [place] % (Auto) 6.5 (0.0-15.0) % Eos % (Auto) 0.8 (0.0-7.0) % Baso % (Auto) 0.2 (0.0-1.5) % Neut # (Auto) 6.5 H (1.4-5.7) K/uL Lymph # (Auto) 2.1 (0.6-2.4) K/uL [place] # (Auto) 0.6 (0.0-0.8) K/uL Eos # (Auto) 0.1 (0.0-0.7) K/uL Baso # (Auto) 0.0 (0.0-0.1) K/uL Nucleated RBC % 0.0 /100WBC Nucleated RBCs # 0 K/uL INR 0.98 Sodium 138 (136-145) mmol/L Potassium 3.7 (3.5-5.1) mmol/L Chloride 102 (98-107) mmol/L Carbon Dioxide 22.8 (21.0-32.0) mmol/L BUN 21 H (7.0-18.0) mg/dL Creatinine 1.0 (0.6-1.0) mg/dL Est Cr Clr Drug Dosing 44.51 mL/min Estimated GFR (MDRD) 53.2 ml/min Glucose 165 H (74-106) mg/dL POC Glucose (60-110) mg/dL Calcium 8.8 (8.5-10.1) mg/dL Total Bilirubin 0.6 (0.2-1.0) mg/dL AST 35 (15-37) IU/L ALT 38 (14-63) IU/L Alkaline Phosphatase 70 (46-116) U/L Troponin I < 0.050 (0.000-0.056) ng/mL Total Protein 7.6 (6.4-8.2) g/dL Albumin 4.1 (3.4-5.0) g/dL Globulin 3.5 (2.6-4.0) g/dL Albumin/Globulin Ratio 1.2 (0.9-1.6) Urine Color Urine Appearance Urine pH (5.0-8.0) Ur Specific [place] (1.001-1.035) Urine Protein (NEGATIVE) mg/dL Urine Glucose (UA) (NEGATIVE) mg/dL Urine Ketones (NEGATIVE) mg/dL Urine Occult Blood (NEGATIVE) Urine Nitrite (NEGATIVE) Urine Bilirubin (NEGATIVE) Urine Urobilinogen (<2.0) EU/dL Ur Leukocyte Esterase (NEGATIVE) COVID-19 ([facility]) (NEGATIVE) 10/09/19 10/10/19 10/10/19 Range/Units 21:20 03:30 05:12 WBC 10.18 (4.0-11.0) K/uL RBC 4.05 L (4.30-5.90) M/uL Hgb 11.5 L (12.0-16.0) g/dL Hct 36.2 (36.0-46.0) % MCV 89.4 (80.0-98.0) fL MCH 28.4 (27.0-32.0) pg MCHC 31.8 (31.0-37.0) g/dL RDW Std Deviation 43.8 (28.0-62.0) fl RDW Coeff of [place] 13 (11.0-15.0) % Plt Count 217 (150-400) K/uL MPV 10.20 (7.40-12.00) fL Neut % (Auto) 79.1 (48.0-80.0) % Lymph % (Auto) 12.4 L (16.0-40.0) % [place] % (Auto) 8.3 (0.0-15.0) % Eos % (Auto) 0.1 (0.0-7.0) % Baso % (Auto) 0.1 (0.0-1.5) % Neut # (Auto) 8.1 H (1.4-5.7) K/uL Lymph # (Auto) 1.3 (0.6-2.4) K/uL [place] # (Auto) 0.8 (0.0-0.8) K/uL Eos # (Auto) 0.0 (0.0-0.7) K/uL Baso # (Auto) 0.0 (0.0-0.1) K/uL Nucleated RBC % 0.0 /100WBC Nucleated RBCs # 0 K/uL INR Sodium (136-145) mmol/L Potassium (3.5-5.1) mmol/L Chloride (98-107) mmol/L Carbon Dioxide (21.0-32.0) mmol/L BUN (7.0-18.0) mg/dL Creatinine (0.6-1.0) mg/dL Est Cr Clr Drug Dosing mL/min Estimated GFR (MDRD) ml/min Glucose (74-106) mg/dL POC Glucose (60-110) mg/dL Calcium (8.5-10.1) mg/dL Total Bilirubin (0.2-1.0) mg/dL AST (15-37) IU/L ALT (14-63) IU/L Alkaline Phosphatase (46-116) U/L Troponin I (0.000-0.056) ng/mL Total Protein (6.4-8.2) g/dL Albumin (3.4-5.0) g/dL Globulin (2.6-4.0) g/dL Albumin/Globulin Ratio (0.9-1.6) Urine Color YELLOW Urine Appearance CLEAR Urine pH 5.5 (5.0-8.0) Ur Specific [place] >= 1.030 (1.001-1.035) Urine Protein NEGATIVE (NEGATIVE) mg/dL Urine Glucose (UA) NEGATIVE (NEGATIVE) mg/dL Urine Ketones NEGATIVE (NEGATIVE) mg/dL Urine Occult Blood NEGATIVE (NEGATIVE) Urine Nitrite NEGATIVE (NEGATIVE) Urine Bilirubin NEGATIVE (NEGATIVE) Urine Urobilinogen 0.2 (<2.0) EU/dL Ur Leukocyte Esterase NEGATIVE (NEGATIVE) COVID-19 ([facility]) NEGATIVE (NEGATIVE) 10/10/19 10/10/19 Range/Units 05:12 07:23 WBC (4.0-11.0) K/uL RBC (4.30-5.90) M/uL Hgb (12.0-16.0) g/dL Hct (36.0-46.0) % MCV (80.0-98.0) fL MCH (27.0-32.0) pg MCHC (31.0-37.0) g/dL RDW Std Deviation (28.0-62.0) fl RDW Coeff of [place] (11.0-15.0) % Plt Count (150-400) K/uL MPV (7.40-12.00) fL Neut % (Auto) (48.0-80.0) % Lymph % (Auto) (16.0-40.0) % [place] % (Auto) (0.0-15.0) % Eos % (Auto) (0.0-7.0) % Baso % (Auto) (0.0-1.5) % Neut # (Auto) (1.4-5.7) K/uL Lymph # (Auto) (0.6-2.4) K/uL [place] # (Auto) (0.0-0.8) K/uL Eos # (Auto) (0.0-0.7) K/uL Baso # (Auto) (0.0-0.1) K/uL Nucleated RBC % /100WBC Nucleated RBCs # K/uL INR Sodium 138 (136-145) mmol/L Potassium 3.8 (3.5-5.1) mmol/L Chloride 103 (98-107) mmol/L Carbon Dioxide 24.9 (21.0-32.0) mmol/L BUN 19 H (7.0-18.0) mg/dL Creatinine 0.8 (0.6-1.0) mg/dL Est Cr Clr Drug Dosing 55.64 mL/min Estimated GFR (MDRD) > 60.0 ml/min Glucose 151 H (74-106) mg/dL POC Glucose 139 H (60-110) mg/dL Calcium 8.5 (8.5-10.1) mg/dL Total Bilirubin (0.2-1.0) mg/dL AST (15-37) IU/L ALT (14-63) IU/L Alkaline Phosphatase (46-116) U/L Troponin I (0.000-0.056) ng/mL Total Protein (6.4-8.2) g/dL Albumin (3.4-5.0) g/dL Globulin (2.6-4.0) g/dL Albumin/Globulin Ratio (0.9-1.6) Urine Color Urine Appearance Urine pH (5.0-8.0) Ur Specific [place] (1.001-1.035) Urine Protein (NEGATIVE) mg/dL Urine Glucose (UA) (NEGATIVE) mg/dL Urine Ketones (NEGATIVE) mg/dL Urine Occult Blood (NEGATIVE) Urine Nitrite (NEGATIVE) Urine Bilirubin (NEGATIVE) Urine Urobilinogen (<2.0) EU/dL Ur Leukocyte Esterase (NEGATIVE) COVID-19 ([place]) (NEGATIVE) Med Orders - Current: Current Medications Acetaminophen (Tylenol) 650 mg PO Q4H PRN PRN Reason: Pain Last Admin: 10/10/19 10:16 Dose: 650 mg Documented by: Insulin Aspart (Novolog) 0 unit SUBCUT TIDAC [facility]; Protocol Last Admin: 10/10/19 07:26 Dose: Not Given Documented by: Morphine Sulfate (Morphine) 2 mg IVPUSH Q2H PRN PRN Reason: Pain (severe 7-10) Stop: 10/11/19 00:30 Last Admin: 10/10/19 03:11 Dose: 2 mg Documented by: Omeprazole (Omeprazole) 20 mg PO ACBREAKFAST [facility] Last Admin: 10/10/19 07:41 Dose: 20 mg Documented by: Oxycodone HCl (Oxycodone) 5 mg PO Q4H PRN PRN Reason: Pain (moderate 4-6) Last Admin: 10/10/19 07:41 Dose: 5 mg Documented by: Sertraline HCl (Zoloft) 100 mg PO DAILY [facility] Last Admin: 10/10/19 09:20 Dose: 100 mg Documented by: Discontinued Medications Hydrocodone Bitart/Acetaminophen (Hilo 325-5 Mg) 1 tab PO ONETIME ONE Stop: 10/09/19 20:28 Last Admin: 10/09/19 20:51 Dose: 1 tab Documented by: Lactated Ringer's (Ringers, Lactated) 1,000 mls @ 100 mls/hr IV ASDIRECTED [facility] Last Admin: 10/10/19 00:15 Dose: 100 mls/hr Documented by: Morphine Sulfate (Morphine) 2 mg IVPUSH ONETIME ONE Stop: 10/09/19 18:30 Last Admin: 10/09/19 18:42 Dose: 2 mg Documented by: Morphine Sulfate (Morphine) 2 mg IVPUSH ONETIME ONE Stop: 10/09/19 19:44 Last Admin: 10/09/19 19:49 Dose: 2 mg Documented by: - Exam General: Alert, Cooperative, No Acute Distress. No: Oriented Lungs: Decreased Breath Sounds (bibasilar) Cardiovascular: Regular Rate, Regular Rhythm GI/Abdominal Exam: Normal Bowel Sounds, Soft, Non-Tender Extremities: Normal Inspection, Normal Range of Motion, Non-Tender, No Pedal Edema Skin: Other (Bruising to L thumb and wrist. Laceration with staple to scalp.) Wound/Incisions: Healing Well, Dressing Dry and Intact Neurological: No New Focal Deficit Psy/Mental Status: Alert, Normal Affect, Normal Mood Sepsis Event Note - Evaluation Sepsis Screening Result: No Definite Risk - Focused Exam Vital Signs: Vital Signs Temp Pulse Resp BP Pulse Ox 10/10/19 07:24 97.8 F 81 145/72 H 91 L 10/10/19 04:15 97.5 F 78 16 132/69 94 L 10/10/19 00:29 97.1 F 88 17 136/66 92 L Date Exam was Performed: 10/10/19 Time Exam was Performed: 12:00 - Problem List & Annotations (1) Fracture of phalanx of thumb SNOMED Code(s): 439003169 Code(s): S62.509A - FRACTURE OF UNSP PHALANX OF UNSP THUMB, INIT FOR CLOS FX Status: Acute Current Visit: Yes Qualifiers: Encounter type: initial encounter Fracture type: closed Phalanx: proximal Fracture alignment: displaced Laterality: left Qualified Code(s): S62.512A - Displaced fracture of proximal phalanx of left thumb, initial encounter for closed fracture (2) Laceration SNOMED Code(s): 974649394 Code(s): XUN8633 - Status: Acute Current Visit: Yes (3) Ribs, multiple fractures SNOMED Code(s): 7679774 Code(s): S22.49XA - MULTIPLE FRACTURES OF RIBS, UNSP SIDE, INIT FOR CLOS FX Status: Acute Current Visit: Yes Qualifiers: Encounter type: initial encounter Fracture type: closed Laterality: right Qualified Code(s): S22.41XA - Multiple fractures of ribs, right side, initial encounter for closed fracture (4) History of dementia SNOMED Code(s): 162832121 Code(s): Z86.59 - PERSONAL HISTORY OF OTHER MENTAL AND BEHAVIORAL DISORDERS Status: Chronic Current Visit: Yes - Problem List Review Problem List Initiated/Reviewed/Updated: Yes - My Orders Last 24 Hours: My Active Orders 10/10/19 08:08 IS (RT) [RT Incentive Spirometry] [RC] Q1HWA 10/10/19 08:09 Acetaminophen [Tylenol] 650 mg PO Q4H PRN - Plan Plan:: 83 yo female with multiple rib fractures following fall. 1. Falls at home - multiple rib fractures - Proximal thumb fracture, discussed with Gayatri Virgen, Ortho [facility]. Place wrist splint with thumb spica and 2 week follow up with Orthopedics. - Complains of R elbow pain, moving well. Obtain Xrays. - PT evaluate and treat - Family requesting placement back into [facility] as they are unable to care for her at home 2. Rib fractures - Pain control PRN - Encourage IS hourly to prevent pneumonia along with teaching splinting to cough and ambulate. This may be difficult due to dementia - Up to chair as possible, work with PT - Bowel regimen with pain control 3. Dementia - Continue home medications VTE prophylaxis: Heparin Dispo: 2-3 days pending placement and pain control
[2019-10-10] MEDS ORDERED: Lidocaine 5% 700 MG Patch TOP SCH (12:30)
[2019-10-10] MEDS: Docusate Sodium 100 MG Cap PO SCH ×2 (12:54→21:27)
[2019-10-10] MEDS: Heparin Sodium 5,000 Units/ML Vial SUBCUT SCH ×2 (12:55→21:27)
--- NOTE | 2019-10-10 14:30 | CR ---
Right elbow: 3 views of the right elbow were obtained. Comparison: No previous elbow study. Very minimal spur is noted off the olecranon process at the attachment of the triceps tendon. Very slight sliver of bone is noted between the radial head and ulna. Difficult to exclude minimal cortical fracture. No additional bony abnormality is seen. No joint effusion is seen. Impression: 1. Questionable minimal cortical fracture as described above. 2. Small olecranon spur. 3. No other acute finding is seen. Diagnostic code #3 This report was dictated in MDT
[2019-10-10] MEDS: Sodium Chloride 0.9% 1,000 ML IV SCH (16:06)
[2019-10-10] MEDS: Ondansetron 4 MG/2 ML SDV IVPUSH PRN (21:29)
[2019-10-11] MEDS: oxyCODONE 5 MG Tab PO PRN ×4 (01:55→20:12)
[2019-10-11] MEDS: Heparin Sodium 5,000 Units/ML Vial SUBCUT SCH ×3 (04:34→20:40)
[2019-10-11] MEDS: Morphine 2 MG/ML SYRINGE IVPUSH PRN ×5 (04:37→22:54)
[2019-10-11] MEDS: Ondansetron 4 MG/2 ML SDV IVPUSH PRN ×3 (04:37→23:25)
[2019-10-11] MEDS: Sodium Chloride 0.9% 1,000 ML IV SCH (06:41)
[2019-10-11] MEDS: Insulin Aspart 100 Units/ML 3 ML Pen SUBCUT SCH ×3 (07:33→17:19)
[2019-10-11] MEDS: Omeprazole 20 MG Cap.CR PO SCH (07:52)
[2019-10-11] MEDS: Sertraline 100 MG Tab PO SCH (08:59)
[2019-10-11] MEDS: Docusate Sodium 100 MG Cap PO SCH ×2 (08:59→20:12)
[2019-10-11] MEDS ORDERED: Polyethylene Glycol 3350 Powder 17 GM Packet PO SCH (09:00)
--- NOTE | 2019-10-11 11:23 | PCM.PN ---
- General Info Date of Service: 10/11/19 Admission Dx/Problem (Free Text): Admission Diagnosis/Problem Admission Diagnosis/Problem Pain management, fall, rib fractures Subjective Update: Reports more pain to R hip today, no chest pain or sob. R rib pain continues as well as L thumb. Eating and drinking well. Encouraged to do IS hourly. Counseled daughter on this as well to help prevent pneumonia post rib fractures. Functional Status: Reports: Tolerating Diet, Urinating. Denies: Ambulating (pivot transfer to chair) - Review of Systems HEENT: Reports: No Symptoms. Denies: Headaches, Sore Throat, Visual Changes Pulmonary: Reports: Pleuritic Chest Pain. Denies: Shortness of Breath Cardiovascular: Reports: No Symptoms. Denies: Chest Pain Gastrointestinal: Reports: No Symptoms. Denies: Abdominal Pain, Nausea, Vomiting Genitourinary: Reports: No Symptoms. Denies: Dysuria, Frequency, Burning Musculoskeletal: Reports: Leg Pain, Joint Pain, Other (rib cage R side) Skin: Reports: No Symptoms Neurological: Reports: No Symptoms Psychiatric: Reports: No Symptoms - Patient Data Vitals - Most Recent: Last Vital Signs Temp 98.2 F 10/11/19 07:10 Pulse 76 10/11/19 07:10 Resp 20 10/11/19 07:10 BP 128/61 10/11/19 07:10 Pulse Ox 94 L 10/11/19 07:10 Weight - Most Recent: 92.986 kg I&O - Last 24 Hours: Intake & Output 10/10/19 10/11/19 10/11/19 22:59 06:59 14:59 Intake Total 1136 931 Output Total 50 Balance 1136 881 Lab Results Last 24 Hours: Laboratory Results - last 24 hr 10/10/19 10/10/19 10/11/19 Range/Units 11:54 17:35 07:24 POC Glucose 143 H 141 H 122 H (60-110) mg/dL Med Orders - Current: Current Medications Acetaminophen (Tylenol) 650 mg PO Q4H PRN PRN Reason: Pain Last Admin: 10/10/19 21:28 Dose: 650 mg Documented by: Bisacodyl (Dulcolax) 10 mg RECTAL DAILY PRN PRN Reason: if no BM after 3 days Docusate Sodium (Colace) 100 mg PO BID [place] Last Admin: 10/11/19 08:59 Dose: 100 mg Documented by: Heparin Sodium (Porcine) (Heparin Sodium) 5,000 units SUBCUT Q8H [facility] Last Admin: 10/11/19 04:34 Dose: 5,000 units Documented by: Sodium Chloride (Normal Saline) 1,000 mls @ 75 mls/hr IV ASDIRECTED [facility] Last Admin: 10/11/19 06:41 Dose: 75 mls/hr Documented by: Insulin Aspart (Novolog) 0 unit SUBCUT TIDAC [facility]; Protocol Last Admin: 10/11/19 07:33 Dose: Not Given Documented by: Lidocaine (Lidoderm 5%) 700 mg TOP Q24H [facility] Last Admin: 10/10/19 12:57 Dose: 700 mg Documented by: Morphine Sulfate (Morphine) 2 mg IVPUSH Q2H PRN PRN Reason: Pain (severe 7-10) Last Admin: 10/11/19 08:18 Dose: 2 mg Documented by: Omeprazole (Omeprazole) 20 mg PO ACBREAKFAST [facility] Last Admin: 10/11/19 07:52 Dose: 20 mg Documented by: Ondansetron HCl (Zofran) 4 mg IVPUSH Q4H PRN PRN Reason: Nausea Last Admin: 10/11/19 04:37 Dose: 4 mg Documented by: Oxycodone HCl (Oxycodone) 5 mg PO Q4H PRN PRN Reason: Pain (moderate 4-6) Last Admin: 10/11/19 09:19 Dose: 5 mg Documented by: Polyethylene Glycol (Miralax) 17 gm PO Q2D@0900 [facility] Last Admin: 10/11/19 08:59 Dose: 17 gm Documented by: Sertraline HCl (Zoloft) 100 mg PO DAILY [facility] Last Admin: 10/11/19 08:59 Dose: 100 mg Documented by: Discontinued Medications Hydrocodone Bitart/Acetaminophen ([place] 325-5 Mg) 1 tab PO ONETIME ONE Stop: 10/09/19 20:28 Last Admin: 10/09/19 20:51 Dose: 1 tab Documented by: Lactated Ringer's (Ringers, Lactated) 1,000 mls @ 100 mls/hr IV ASDIRECTED [facility] Last Admin: 10/10/19 00:15 Dose: 100 mls/hr Documented by: Morphine Sulfate (Morphine) 2 mg IVPUSH ONETIME ONE Stop: 10/09/19 18:30 Last Admin: 10/09/19 18:42 Dose: 2 mg Documented by: Morphine Sulfate (Morphine) 2 mg IVPUSH ONETIME ONE Stop: 10/09/19 19:44 Last Admin: 10/09/19 19:49 Dose: 2 mg Documented by: - Exam General: Alert, Cooperative, No Acute Distress. No: Oriented Lungs: Clear to Auscultation, Normal Respiratory Effort Cardiovascular: Regular Rate, Regular Rhythm, No Murmurs Extremities: Normal Inspection, Non-Tender, No Pedal Edema, Normal Capillary Refill, Limited Range of Motion (R hip, due to pain she is unwilling to move it much. ) Skin: Other (bruising to R flank and rib cage. ) Neurological: No New Focal Deficit Psy/Mental Status: Alert, Normal Affect, Normal Mood Sepsis Event Note - Evaluation Sepsis Screening Result: No Definite Risk - Focused Exam Vital Signs: Vital Signs Temp Pulse Resp BP Pulse Ox Pulse Ox Pulse Ox 10/11/19 07:10 98.2 F 76 20 128/61 94 L 10/11/19 04:00 97.5 F 86 18 140/64 95 10/11/19 02:26 93 L 83 L 10/11/19 00:00 97.2 F 89 19 140/74 93 L Date Exam was Performed: 10/11/19 Time Exam was Performed: 11:17 - Problem List & Annotations (1) Fracture of phalanx of thumb SNOMED Code(s): 768328857 Code(s): S62.509A - FRACTURE OF UNSP PHALANX OF UNSP THUMB, INIT FOR CLOS FX Status: Acute Current Visit: Yes Qualifiers: Encounter type: initial encounter Fracture type: closed Phalanx: proximal Fracture alignment: displaced Laterality: left Qualified Code(s): S62.512A - Displaced fracture of proximal phalanx of left thumb, initial encounter for closed fracture (2) Laceration SNOMED Code(s): 037675223 Code(s): LMX2154 - Status: Acute Current Visit: Yes (3) Ribs, multiple fractures SNOMED Code(s): 4022765 Code(s): S22.49XA - MULTIPLE FRACTURES OF RIBS, UNSP SIDE, INIT FOR CLOS FX Status: Acute Current Visit: Yes Qualifiers: Encounter type: initial encounter Fracture type: closed Laterality: right Qualified Code(s): S22.41XA - Multiple fractures of ribs, right side, initial encounter for closed fracture (4) History of dementia SNOMED Code(s): 264517227 Code(s): Z86.59 - PERSONAL HISTORY OF OTHER MENTAL AND BEHAVIORAL DISORDERS Status: Chronic Current Visit: Yes - Problem List Review Problem List Initiated/Reviewed/Updated: Yes - My Orders Last 24 Hours: My Active Orders 10/10/19 12:01 bisacodyL [Dulcolax] 10 mg RECTAL DAILY PRN 10/10/19 12:02 Communication Order [RC] ROUTINE 10/10/19 12:15 Docusate Sodium [Colace] 100 mg PO BID Heparin Sodium 5,000 units SUBCUT Q8H 10/10/19 12:30 Lidocaine 5% [Lidoderm 5%] 700 mg TOP Q24H 10/10/19 16:00 Sodium Chloride 0.9% [Normal Saline] 1,000 ml IV ASDIRECTED 10/11/19 08:45 Hip wo Cont Rt [CT] Urgent 10/11/19 09:00 polyethylene glycoL 3350 [MiraLAX] 17 gm PO Q2D@0900 - Plan Plan:: 83 yo female with multiple rib fractures following fall. 1. Falls at home - multiple rib fractures - Proximal thumb fracture, discussed with Gayatri Virgen, Ortho RESEARCH AND DEVELOPMENT CHEMIST. Place wrist splint with thumb spica and 2 week follow up with Orthopedics. - Complains of R elbow pain, moving well. X ray shows sliver of bone between radial and ulna head, small cortical fracture. Spoke with Gayatri Virgen NP. ROM as tolerated. May place in sling if pain too much. - PT evaluate and treat - Family requesting placement back into [facility] as they are unable to care for her at home - Heat and Ice prn pain to - More R hip pain today, Pelvis xray showed no fracture. Will obtain R hip CT to further rule out fracture. 2. Rib fractures - Pain control PRN - Encourage IS hourly to prevent pneumonia along with teaching splinting to cough and ambulate. This may be difficult due to dementia - Up to chair as possible, work with PT - Bowel regimen with pain control 3. Dementia - Continue home medications VTE prophylaxis: Heparin Dispo: 2-3 days pending placement and pain control
[2019-10-11] MEDS: Bisacodyl 10 MG Supp RECTAL PRN (14:16)
--- NOTE | 2019-10-11 14:39 | CT ---
CT right hip Technique: Multiple axial sections through the right hip were obtained. Reconstructed coronal and sagittal images were obtained. Findings: Mild joint space narrowing is seen superiorly within the right hip. Slight degenerative change is noted within the pubic symphysis. Bony structures are osteopenic. No fracture is appreciated. Impression: 1. Mild degenerative change and osteopenia. 2. No acute fracture is appreciated. Diagnostic code #2 This report was dictated in MDT MTDD
[2019-10-12] MEDS ORDERED: Lidocaine 5% 700 MG Patch TOP SCH
[2019-10-12] MEDS: oxyCODONE 5 MG Tab PO PRN ×2 (00:26→06:56)
[2019-10-12] MEDS: Morphine 2 MG/ML SYRINGE IVPUSH PRN ×2 (04:45→10:12)
[2019-10-12] MEDS: Heparin Sodium 5,000 Units/ML Vial SUBCUT SCH ×2 (04:55→14:41)
[2019-10-12 06:39] LABS: BLOOD UREA NITROGEN,BUN 14 mg/dL (7.0-18.0); CARBON DIOXIDE,CO2 27.8 mmol/L (21.0-32.0); CHLORIDE,CL 103 mmol/L (98-107); GLUCOSE RANDOM 144 mg/dL (74-106); POTASSIUM,K 3.3 mmol/L (3.5-5.1); SODIUM,NA 140 mmol/L (136-145)
[2019-10-12] MEDS: Omeprazole 20 MG Cap.CR PO SCH (06:57)
[2019-10-12 07:40] VITALS: BP 125/60; PULSE 78
[2019-10-12] MEDS ORDERED: Potassium Chloride 20 MEQ Tab.ER PO ONE (07:53)
[2019-10-12] MEDS: Insulin Aspart 100 Units/ML 3 ML Pen SUBCUT SCH (07:58)
[2019-10-12] MEDS: Docusate Sodium 100 MG Cap PO SCH (08:17)
[2019-10-12] MEDS: Sertraline 100 MG Tab PO SCH (08:17)
--- NOTE | 2019-10-12 08:53 | PCM.DCSUM1 ---
Discharge Summary - Hospital Course Brief History: 83 yo female with pmh of DM and dementia who lives with her daughter. PAtient fell in the garage. Daughter was carrying in groceries when she heard her shout. She was found on her back. In the ED she was discovered to have a 1cm scalp laceration on the right. She also had a bruised right elbow. On radiological images she had a fracture of her left thumb and fractures of the 4th, 6th 7th, 8th right ribs. Diagnosis: Stroke: No Modified Nicko Scale: No Symptoms at All Modified Carlton Scale Score: 0 - Discharge Data Discharge Date: 10/12/19 Discharge Disposition: DC/Tfer to SNF 03 Condition: Good - Referral to Home Health Primary Care Physician: Rubens Weeks MD - Discharge Diagnosis/Problem(s) (1) Fracture of phalanx of thumb SNOMED Code(s): 111620944 ICD Code: S62.509A - FRACTURE OF UNSP PHALANX OF UNSP THUMB, INIT FOR CLOS FX Status: Acute Current Visit: Yes Qualifiers: Encounter type: initial encounter Fracture type: closed Phalanx: proximal Fracture alignment: displaced Laterality: left Qualified Code(s): S62.512A - Displaced fracture of proximal phalanx of left thumb, initial encounter for closed fracture (2) Laceration SNOMED Code(s): 012663122 ICD Code: [id number] - Status: Acute Current Visit: Yes (3) Ribs, multiple fractures SNOMED Code(s): 9407045 ICD Code: S22.49XA - MULTIPLE FRACTURES OF RIBS, UNSP SIDE, INIT FOR CLOS FX Status: Acute Current Visit: Yes Qualifiers: Encounter type: initial encounter Fracture type: closed Laterality: right Qualified Code(s): S22.41XA - Multiple fractures of ribs, right side, initial encounter for closed fracture (4) History of dementia SNOMED Code(s): 684396884 ICD Code: Z86.59 - PERSONAL HISTORY OF OTHER MENTAL AND BEHAVIORAL DISORDERS Status: Chronic Current Visit: Yes - Patient Summary/Data Consults: Consultations 10/10/19 00:29 PT Evaluation and Treatment [CONS] Routine Hospital Course: Admitting Diagnoses: Fall R sided R factures L thumb fracture Discharge Diagnoses: Fall R sided R factures L thumb fracture R radial head non displaced fracture Other pmh: Depression Dementia Radha was admitted after falling at home, this was unwitnessed but states she fell backwards from the stair in the garage. She was evaluated for fractures, found to have multiple R sided rib fractures, a proximal thumb fracture on the L side as well as a R radial head cortical fracture, non displaced. Volar splint with thumb spica placed to L wrist, she will have follow up with Orthopedics in 2 weeks. R elbow to have ROM as tolerated. She and family educated extensively regarding IS and CDB with rib fractures due to possibility of pneumonia developing from shallow breathing. She was having increased pain to R hip, CT of this obtained to verify no fracture. This was negative for fracture. She was evaluated by PT, is able to pivot to chair with a lot of encouragement. She was given Oxycodone for pain along Tylenol. She will be transferred to [facility] as family is unable to care for her at home any longer. I left message with Dr Weeks regarding readmission. She is to return to ED or clinic if concerns should arise. - Patient Instructions Diet: Diabetic Diet Activity: As Tolerated, No Strenuous Activities Driving: Do Not Drive Showering/Bathing: May Shower Notify Provider of: Fever, Increased Pain, Swelling and Redness, Drainage, Nausea and/or Vomiting Other/Special Instructions: May remove splint to L wrist for bathing purposes. Blood sugar checks QID. Encourage coughing, deep breathing hourly along with Incentive spirometer use to prevent pneumonia. PT/OT to evaluate and treat. Consider bed that goes to the floor to prevent falls. Oxygen 2 L NC to keeps sats >90% and at night time. - Discharge Plan *PRESCRIPTION DRUG MONITORING PROGRAM REVIEWED*: Not Applicable *COPY OF PRESCRIPTION DRUG MONITORING REPORT IN PATIENT [facility]: Not Applicable Prescriptions/Med Rec: Docusate Sodium [Colace] 100 mg PO BID #60 cap bisacodyL [Dulcolax] 10 mg RECTAL DAILY PRN #15 supp PRN Reason: if no BM after 3 days polyethylene glycoL 3350 [MiraLAX] 17 gm PO Q2D@0900 #10 packet oxyCODONE 5 mg PO Q4H PRN #20 tablet PRN Reason: Pain (Moderate 4-6) Acetaminophen [Tylenol] 650 mg PO Q4H PRN #60 tablet PRN Reason: Pain Home Medications: Home Meds Omeprazole 20 mg PO ACBREAKFAST 10/11/16 [History] Sertraline [Zoloft] 100 mg PO DAILY 10/11/16 [History] Acetaminophen [Tylenol] 650 mg PO Q4H PRN #60 tablet 10/12/19 [Rx] Calcium Carbonate/Vitamin D3 [Calcium 600 + Vit D Tablet] 1 each PO DAILY #0 10/12/19 [Rx] Docusate Sodium [Colace] 100 mg PO BID #60 cap 10/12/19 [Rx] Multivitamin [Daily Kaye] 1 each PO DAILY #0 10/12/19 [Rx] bisacodyL [Dulcolax] 10 mg RECTAL DAILY PRN #15 supp 10/12/19 [Rx] oxyCODONE 5 mg PO Q4H PRN #20 tablet 10/12/19 [Rx] polyethylene glycoL 3350 [MiraLAX] 17 gm PO Q2D@0900 #10 packet 10/12/19 [Rx] sitaGLIPtin Phosphate [Januvia] 50 mg PO DAILY #0 10/12/19 [Rx] Oxygen Therapy Mode: Room Air Referrals: Gayatri Virgen NP [Nurse Practitioner] - 10/26/19 1:40 pm (Arrive 15 minutes early with a photo ID, insurance card, and a mask.) Rubens Weeks MD [Primary Care Provider] - 10/19/19 (Will be seen on next [place] Rounds) - Discharge Summary/Plan Comment DC Time >30 min.: No - Patient Data Vitals - Most Recent: Last Vital Signs Temp 97.9 F 10/12/19 07:15 Pulse 78 10/12/19 07:15 Resp 19 10/12/19 07:15 BP 125/60 10/12/19 07:15 Pulse Ox 92 L 10/12/19 07:15 Weight - Most Recent: 92.986 kg I&O - Last 24 hours: Intake & Output 10/11/19 10/12/19 10/12/19 22:59 06:59 14:59 Intake Total 400 500 Output Total 250 350 Balance 150 150 Lab Results - Last 24 hrs: Laboratory Results - last 24 hr 10/11/19 10/11/19 10/12/19 Range/Units 12:04 17:13 05:48 WBC 8.19 (4.0-11.0) K/uL RBC 3.88 L (4.30-5.90) M/uL Hgb 11.1 L (12.0-16.0) g/dL Hct 35.2 L (36.0-46.0) % MCV 90.7 (80.0-98.0) fL MCH 28.6 (27.0-32.0) pg MCHC 31.5 (31.0-37.0) g/dL RDW Std Deviation 44.3 (28.0-62.0) fl RDW Coeff of [place] 14 (11.0-15.0) % Plt Count 192 (150-400) K/uL MPV 9.90 (7.40-12.00) fL Neut % (Auto) 66.6 (48.0-80.0) % Lymph % (Auto) 23.1 (16.0-40.0) % [place] % (Auto) 9.4 (0.0-15.0) % Eos % (Auto) 0.7 (0.0-7.0) % Baso % (Auto) 0.2 (0.0-1.5) % Neut # (Auto) 5.5 (1.4-5.7) K/uL Lymph # (Auto) 1.9 (0.6-2.4) K/uL [place] # (Auto) 0.8 (0.0-0.8) K/uL Eos # (Auto) 0.1 (0.0-0.7) K/uL Baso # (Auto) 0.0 (0.0-0.1) K/uL Nucleated RBC % 0.0 /100WBC Nucleated RBCs # 0 K/uL Sodium (136-145) mmol/L Potassium (3.5-5.1) mmol/L Chloride (98-107) mmol/L Carbon Dioxide (21.0-32.0) mmol/L BUN (7.0-18.0) mg/dL Creatinine (0.6-1.0) mg/dL Est Cr Clr Drug Dosing mL/min Estimated GFR (MDRD) ml/min Glucose (74-106) mg/dL POC Glucose 142 H 155 H (60-110) mg/dL Calcium (8.5-10.1) mg/dL 10/12/19 10/12/19 Range/Units 05:48 06:54 WBC (4.0-11.0) K/uL RBC (4.30-5.90) M/uL Hgb (12.0-16.0) g/dL Hct (36.0-46.0) % MCV (80.0-98.0) fL MCH (27.0-32.0) pg MCHC (31.0-37.0) g/dL RDW Std Deviation (28.0-62.0) fl RDW Coeff of [place] (11.0-15.0) % Plt Count (150-400) K/uL MPV (7.40-12.00) fL Neut % (Auto) (48.0-80.0) % Lymph % (Auto) (16.0-40.0) % [place] % (Auto) (0.0-15.0) % Eos % (Auto) (0.0-7.0) % Baso % (Auto) (0.0-1.5) % Neut # (Auto) (1.4-5.7) K/uL Lymph # (Auto) (0.6-2.4) K/uL [place] # (Auto) (0.0-0.8) K/uL Eos # (Auto) (0.0-0.7) K/uL Baso # (Auto) (0.0-0.1) K/uL Nucleated RBC % /100WBC Nucleated RBCs # K/uL Sodium 140 (136-145) mmol/L Potassium 3.3 L (3.5-5.1) mmol/L Chloride 103 (98-107) mmol/L Carbon Dioxide 27.8 (21.0-32.0) mmol/L BUN 14 (7.0-18.0) mg/dL Creatinine 0.7 (0.6-1.0) mg/dL Est Cr Clr Drug Dosing 63.58 mL/min Estimated GFR (MDRD) > 60.0 ml/min Glucose 144 H (74-106) mg/dL POC Glucose 156 H (60-110) mg/dL Calcium 8.5 (8.5-10.1) mg/dL Med Orders - Current: Current Medications Acetaminophen (Tylenol) 650 mg PO Q4H PRN PRN Reason: Pain Last Admin: 10/10/19 21:28 Dose: 650 mg Documented by: Bisacodyl (Dulcolax) 10 mg RECTAL DAILY PRN PRN Reason: if no BM after 3 days Last Admin: 10/11/19 14:16 Dose: 10 mg Documented by: Docusate Sodium (Colace) 100 mg PO BID [facility] Last Admin: 10/12/19 08:17 Dose: 100 mg Documented by: Heparin Sodium (Porcine) (Heparin Sodium) 5,000 units SUBCUT Q8H [facility] Last Admin: 10/12/19 04:55 Dose: 5,000 units Documented by: Insulin Aspart (Novolog) 0 unit SUBCUT TIDAC [facility]; Protocol Last Admin: 10/12/19 07:58 Dose: 1 units Documented by: Lidocaine (Lidoderm 5%) 700 mg TOP DAILY@0000 [facility] Last Admin: 10/11/19 23:29 Dose: 700 mg Documented by: Morphine Sulfate (Morphine) 2 mg IVPUSH Q2H PRN PRN Reason: Pain (severe 7-10) Last Admin: 10/12/19 04:45 Dose: 2 mg Documented by: Omeprazole (Omeprazole) 20 mg PO ACBREAKFAST [facility] Last Admin: 10/12/19 06:57 Dose: 20 mg Documented by: Ondansetron HCl (Zofran) 4 mg IVPUSH Q4H PRN PRN Reason: Nausea Last Admin: 10/11/19 23:25 Dose: 4 mg Documented by: Oxycodone HCl (Oxycodone) 5 mg PO Q4H PRN PRN Reason: Pain (moderate 4-6) Last Admin: 10/12/19 06:56 Dose: 5 mg Documented by: Polyethylene Glycol (Miralax) 17 gm PO Q2D@0900 [facility] Last Admin: 10/11/19 08:59 Dose: 17 gm Documented by: Sertraline HCl (Zoloft) 100 mg PO DAILY [facility] Last Admin: 10/12/19 08:17 Dose: 100 mg Documented by: Discontinued Medications Hydrocodone Bitart/Acetaminophen ([place] 325-5 Mg) 1 tab PO ONETIME ONE Stop: 10/09/19 20:28 Last Admin: 10/09/19 20:51 Dose: 1 tab Documented by: Lactated Ringer's (Ringers, Lactated) 1,000 mls @ 100 mls/hr IV ASDIRECTED [facility] Last Admin: 10/10/19 00:15 Dose: 100 mls/hr Documented by: Sodium Chloride (Normal Saline) 1,000 mls @ 75 mls/hr IV ASDIRECTED [facility] Last Admin: 10/11/19 06:41 Dose: 75 mls/hr Documented by: Lidocaine (Lidoderm 5%) 700 mg TOP Q24H [facility] Last Admin: 10/10/19 12:57 Dose: 700 mg Documented by: Morphine Sulfate (Morphine) 2 mg IVPUSH ONETIME ONE Stop: 10/09/19 18:30 Last Admin: 10/09/19 18:42 Dose: 2 mg Documented by: Morphine Sulfate (Morphine) 2 mg IVPUSH ONETIME ONE Stop: 10/09/19 19:44 Last Admin: 10/09/19 19:49 Dose: 2 mg Documented by: Potassium Chloride (Klor-Con M20) 40 meq PO ONETIME ONE Stop: 10/12/19 07:54 Last Admin: 10/12/19 08:17 Dose: 40 meq Documented by: - Exam General: Reports: Alert, Cooperative, No Acute Distress. Denies: Oriented Lungs: Reports: Clear to Auscultation, Normal Respiratory Effort Cardiovascular: Reports: Regular Rate, Regular Rhythm GI/Abdominal Exam: Normal Bowel Sounds, Soft, Non-Tender Extremities: Normal Inspection, Normal Range of Motion, Non-Tender Skin: Reports: Ecchymosis (R flank) Neurological: Reports: No New Focal Deficit Psy/Mental Status: Reports: Alert, Normal Affect, Normal Mood
[2019-10-12] MEDS: Bisacodyl 10 MG Supp RECTAL PRN (10:16)
== END 2019-10-12 11:15 | DRG 563 ==
LOC: MW.ED 17:30 → MW.MS 21:06
PROVIDERS: ADMIT Internal Medicine; ATTEND Internal Medicine
DX: S62.512A Displaced fracture of proximal phalanx of left thumb, initial encounter for closed fracture (principal); S22.41XA Multiple fractures of ribs, right side, initial encounter for closed fracture; S09.90XA Unspecified injury of head, initial encounter; S52.124A Nondisplaced fracture of head of right radius, initial encounter for closed fracture; W18.30XA Fall on same level, unspecified, initial encounter; M54.9 Dorsalgia, unspecified; F03.90 Unspecified dementia, unspecified severity, without behavioral disturbance, psychotic disturbance, mood disturbance, and anxiety; Z20.828 Contact with and (suspected) exposure to other viral communicable diseases; S01.01XA Laceration without foreign body of scalp, initial encounter; K21.9 Gastro-esophageal reflux disease without esophagitis; M19.90 Unspecified osteoarthritis, unspecified site; F41.9 Anxiety disorder, unspecified; F32.9 Major depressive disorder, single episode, unspecified; D64.9 Anemia, unspecified; M25.551 Pain in right hip; Z91.048 Other nonmedicinal substance allergy status; Z91.040 Latex allergy status; Z88.1 Allergy status to other antibiotic agents; Z91.09 Other allergy status, other than to drugs and biological substances; Z79.899 Other long term (current) drug therapy; Z86.73 Personal history of transient ischemic attack (TIA), and cerebral infarction without residual deficits; W10.9XXA Fall (on) (from) unspecified stairs and steps, initial encounter
CPT/HCPCS: 12001; 29125; 36415; 70450; 71045; 71250; 72125; 72128; 72131; 72170; 73140; 74150; 80053; 84484; 85025; 85610; 93005; 96374; 96376; 99285; A9270; J2270 ×2; 73080-26-RT; 73080-RT; 73700-26-RT; 73700-RT; 80048; 81003; 82962; 93010; 97110-GP; 97161-GP; 97530-GP; J1644; J1815-GY; J2405; J7030; J7120; U0002

== ENCOUNTER 2023-03-29 08:21 | Emergency (ER) | payer MEDICARE, BC ==
[2023-03-29 08:38] LABS: BASOPHILS ABSOLUTE AUTO 0.03 K/uL (0.00-0.20); BASOPHILS PERCENT AUTO 0.5 % (0.0-1.0); EOSINOPHILS ABSOLUTE AUTO 0.11 K/uL (0.00-0.45); EOSINOPHILS PERCENT AUTO 1.7 % (0.0-6.0); HEMATOCRIT 35.8 % (37.0-47.0); HEMOGLOBIN 12.1 g/dL (12.0-16.0); IMMATURE GRAN ABSOLUTE AUTO 0.02 K/uL (0.00-0.05); IMMATURE GRAN PERCENT AUTO 0.3 % (0.0-0.4); LYMPHOCYTES ABSOLUTE AUTO 1.66 K/uL (1.00-4.80); LYMPHOCYTES PERCENT AUTO 26.1 % (24.0-44.0); MEAN CORPUSCULAR HEMOGLOBIN 28.9 pg (28.0-32.0); MEAN CORPUSCULAR HGB CONC 33.8 g/dL (32.0-36.0); MEAN CORPUSCULAR VOLUME 85.4 fL (83.0-99.0); MEAN PLATELET VOLUME 9.2 fL (9.4-12.3); MONOCYTES ABSOLUTE AUTO 0.38 K/uL (0.00-0.80); NEUTROPHILS ABSOLUTE AUTO 4.16 K/uL (1.80-7.70); NEUTROPHILS PERCENT AUTO 65.4 % (41.0-71.0); PLATELET COUNT,PLT 156 K/uL (150-400); RED BLOOD CELL COUNT 4.19 M/uL (4.10-5.30); WHITE BLOOD CELL COUNT,WBC 6.36 K/uL (3.9-11.3)
[2023-03-29 09:06] LABS: ALBUMIN 3.2 g/dL (3.4-5.0); BILIRUBIN TOTAL 0.6 mg/dL (0.2-1.0); CALCIUM 8.8 mg/dL (8.5-10.1); CARBON DIOXIDE,CO2 28.6 mmol/L (21.0-32.0); EST CRCL DRUG DOSING (CG) 41.49 mL/min; MAGNESIUM 1.7 mg/dL (1.8-2.4); PROTEIN TOTAL,TP 6.4 g/dL (6.4-8.2)
[2023-03-29 09:29] LABS: APPEARANCE,URINE CLEAR; BILIRUBIN,URINE NEGATIVE (NEGATIVE); COLOR,URINE YELLOW; GLUCOSE,URINE NEGATIVE (NEGATIVE); KETONES,URINE NEGATIVE (NEGATIVE); LEUKOCYTE ESTERASE,URINE NEGATIVE (NEGATIVE); NITRITE,URINE NEGATIVE (NEGATIVE); OCCULT BLOOD,URINE NEGATIVE (NEGATIVE); PROTEIN,URINE NEGATIVE (NEGATIVE); UROBILINOGEN,URINE 0.2 EU/dL (<2.0)
[2023-03-29 11:43] VITALS: BP 118/58; PULSE 86
== END 2023-03-29 11:44 | disposition home or self-care (01) ==
LOC: MW.ED 08:21
DX: Z04.3 Encounter for examination and observation following other accident (principal); K21.9 Gastro-esophageal reflux disease without esophagitis; Z91.040 Latex allergy status; Z88.1 Allergy status to other antibiotic agents; Z91.048 Other nonmedicinal substance allergy status; Z79.899 Other long term (current) drug therapy
CPT/HCPCS: 36415; 70450; 70450-26; 71250; 71250-26; 72125; 72125-26; 72128-26; 72131-26; 74176; 74176-26; 80053; 81003; 83735; 85025; 93005; 93010; 99283; 99284

== ENCOUNTER 2025-01-03 21:08 | Emergency (ER) | payer MEDICARE, BC ==
[2025-01-04 01:21] VITALS: BP 131/65; PULSE 78
== END 2025-01-04 01:41 ==
LOC: MW.ED 21:08
DX: S62.622A Displaced fracture of middle phalanx of right middle finger, initial encounter for closed fracture (principal); S00.03XA Contusion of scalp, initial encounter; S09.90XA Unspecified injury of head, initial encounter; F03.90 Unspecified dementia, unspecified severity, without behavioral disturbance, psychotic disturbance, mood disturbance, and anxiety; Z75.3 Unavailability and inaccessibility of health-care facilities; Z88.1 Allergy status to other antibiotic agents; Z91.040 Latex allergy status; Z91.041 Radiographic dye allergy status; Z88.8 Allergy status to other drugs, medicaments and biological substances; Z79.899 Other long term (current) drug therapy; W19.XXXA Unspecified fall, initial encounter
CPT/HCPCS: 70450; 70450-26; 71045; 71045-26; 72125; 72125-26; 73130-26-RT; 73130-RT; 73502-26-RT; 73502-RT; 73700-26-RT; 73700-RT; 99284